=== PATIENT | female | born 1975 | race Caucasian/White ===

== ENCOUNTER 2022-05-15 09:03 | Outpatient (CLI) | payer OTHER, SELFPAY ==
--- NOTE | 2022-05-15 09:00 | ECG_ITS ---
Measurements Intervals [place] Rate: 68 P: 7 CT: 145 QRS: 38 QRSD: 92 T: 35 QT: 385 QTc: 411 Interpretive Statements SINUS RHYTHM BASELINE ARTIFACT- I, II, III, AVR, AVL, AVF, V1-V6 NORMAL ECG NO PREVIOUS ECG AVAILABLE FOR COMPARISON Electronically Signed On 05-15-2022 9:50:35 CDT by Kevan Bradley D.O.
[2022-05-15 09:51] LABS: Anion Gap 14 mmol/L (8-16); Blood Urea Nitrogen 11 mg/dL (7-17); Carbon Dioxide 23 mmol/L (22-30); Chloride 99 mmol/L (98-107); Estimated Glomerular Filt Rate > 60; Glucose 150 mg/dL (65-110); Potassium 4.2 mmol/L (3.4-5.0); Sodium 136 mmol/L (137-145)
== END 2022-05-15 09:04 | disposition home or self-care (01) ==
LOC: ANHSURGERY 09:12
PROVIDERS: Anesthesiology; PCP Nurse Practitioner Family; Visit Provider Orthopaedic Surgery
DX: E11.9 Type 2 diabetes mellitus without complications (principal); Z01.818 Encounter for other preprocedural examination
CPT/HCPCS: 36415; 80048; 93005

== ENCOUNTER 2022-05-20 00:47 | Day surgery (SDC) | payer OTHER, SELFPAY ==
[2022-05-14 10:39] VITALS: BMI 22.1
--- NOTE | 2022-05-14 10:57 | PC.NURSE ---
Report to the Outpatient Waiting Room, entrance under the green pavilion located off [facility], at time 11:30 on date 05/20/22. OR Time: 1:30. Time changes happen often and if your time is changed the preop area will call you the afternoon before. - You and your visitor will be asked to self-screen and do not enter if you have any COVID symptoms. - Only one visitor and NO children visitors are allowed at this time. - The patient visitor is requested to leave or wait in car when not with patient due to restrictions. - A mask is required within the hospital. Patients may have clear liquids (water, carbonated beverages, clear teas, apple juice) until 3 hours prior to surgery (10:30) with a maximum of 20 ounces. - No food from midnight until time of surgery Take the following medications with a SIP of water the morning of surgery: VALACYCLOVIR Medications to discontinue per physician: N/A Date to take last dose: N/A Please no make-up, nail v[place] citizen, hairspray, perfume, deodorant, or body powder the day of surgery. No jewelry (including any body piercings) or valuables the day of surgery, leave them at home. Please take a shower or bath the night before, or the morning of, surgery with an antibacterial soap. Wear comfortable, loose fitting clothing. - Jewelry must be removed prior to entering the operating room. Rings and piercings that are not removed may be cut off. - The hospital will not accept responsibility for valuables. - Please leave all valuables, including medications, at home the day of surgery. If you are going home after surgery, a licensed intermodal owner operator truck driver must drive you home. - NO public transportation without another adult. - We recommend that an adult stay with you for 24 hours following discharge. - We also recommend that you do not drive, make important decision, drink alcoholic beverages, or take any drugs that were not prescribed by your health care provider for at least 24 hours after your discharge time. Follow any additional instructions given to you from your surgeon. If you or anyone in your household have experienced Covid symptoms in the past week, please notify your surgeon or the nurse liaison at the phone number below for possible testing. Telephone instructions given to PT - NOÉ BLAND and asked if any additional questions and then verbalized understanding. Patient advised to call surgeon office or pre surgery nurse liaison [phone] if any additional questions.
--- NOTE | 2022-05-19 12:43 | P.PNAN_ITS ---
Anes - Initial Pre Proc Eval Procedure: Operation Date: 05/20/22 13:30 Proposed Procedures p Lateral Epicondyle Debridement Right Elbow - Warner Mcnair MD Date/Time: 05/19/22 12:43 Surgeon: Warner Mcnair MD Pre Op Diagnosis: right elbow lateral epicondylitis Patient Data Age: 46 Gender: F Height: 1.73 m Weight: 66.22 kg Allergies Allergy/AdvReac Type Severity Reaction Status Date / Time azithromycin Allergy Unknown Rash Verified 05/20/22 12:06 Penicillins Allergy Unknown Rash Verified 05/20/22 12:06 [facility]lutide [facility] AdvReac Severe Vomiting Verified 05/20/22 12:06 Mciulfj-BPD-UvA Reductase AdvReac Mild muscle Verified 05/20/22 12:06 Inhibitor cramps Home Medications Medication Instructions Recorded Confirmed Type lisinopril 10 mg tablet 10 mg PO DAILY 10/14/21 05/20/22 History metformin 500 mg tablet 500 mg PO DAILY 10/14/21 05/20/22 History valacyclovir 500 mg tablet 500 mg PO DAILY 10/14/21 05/20/22 History Patient hx anesthesia problems: none Family hx anesthesia problems: none Results Review: All pre-operative results and documents have been reviewed as part of the pre- operative evaluation. [facility] Past Medical History Medical History Amenorrhea Anemia Anxiety disorder Diabetes GERD with esophagitis Heart murmur Hypertension Low back pain Menorrhagia Surgical History Surgical History History of bladder surgery History of History of endometrial ablation History of knee surgery History of tubal ligation Hx of foot surgery Family History Family History Mother Diabetes mellitus Hypertension Social History Social History Smoking packs per day: 0.5 Smoking cigarettes per day: 10.0 Years smoked: 20 Smoking pack-years: 10.00 Smoking status: Current every day smoker Tobacco type: cigarettes Alcohol intake: never Drinks per week: 4 Substance use: current Substance use type: marijuana Living arrangements: with family Spiritual care concerns: No Anes - Eval Final PreProcedure Day of Procedure 05/19/22 12:43 Patient weight: normal Heart: regular rate and rhythm Lungs: clear to auscultation and normal air movement Airway: Mallampati scale class II Neurological: alert and oriented Last oral intake: >/= 8 hours ASA classification: III Emergent: no Anesthetic plan: proceed Anesthesia type and monitoring: general LMA Results Review: All pre-operative results and documents have been reviewed as part of the pre- operative evaluation. Informed Consent: The patient's anesthetic plan and its attendant risks and benefits were discussed with the patient/family/POA. Questions were solicited and answers provided to the satisfaction of the patient/family/POA.
[2022-05-20] VITALS (9 sets, daily range): BP systolic 142–166; BP diastolic 64–100; PULSE 60–85; RESP 12–20; TEMP 36.1; O2SAT 98–100
--- NOTE | 2022-05-20 10:09 | PM.HPGS ---
History of Present Illness History of Present Illness Consent: Risks, benefits, and alternatives have been discussed and questions answered. Patient agrees to proceed with procedure. Chief complaint: right elbow lateral epicondylitis Narrative: Emily Camacho is a 46 year old female with well-localized lateral elbow pain.? Limits her daily activities.? Aggravated particularly by picking things up and gripping.? She has had several injections and physical therapy. The last injection was not helpful.? Physical therapy did not provide relief. Examination? Normal elbow motion.? Well-localized tenderness at the lateral epicondyle on the right.? Pain with provocative resistance testing.? No skin rash or lesion.? Full range of motion without pain bilaterally.? No instability.? No effusion.? Shoulder exam benign bilaterally.? Good system safety engineer strength.? Light touch sensation intact. ? Negative Tinel's test at the elbow bilaterally. Diagnostics? Previous radiographs show no significant findings. MRI shows tendinosis of the common extensor tendon. Impression Lateral epicondylitis right elbow.?Confirmed by MRI. Persistent right lateral elbow pain despite several injections and physical therapy.? She had good relief from the very 1st injection only. She is right-handed and very frustrated.?? I recommend?lateral epicondylitis debridement.? Risks, benefits, and alternatives discussed.? Review of Systems Review of Systems: All systems reviewed & are unremarkable except as noted in HPI and below PMFSH Past Medical History Medical History Amenorrhea Anemia Anxiety disorder Diabetes GERD with esophagitis Heart murmur Hypertension Low back pain Menorrhagia Surgical History Surgical History History of bladder surgery History of History of endometrial ablation History of knee surgery History of tubal ligation Hx of foot surgery Family History Family History Mother Diabetes mellitus Hypertension Social History Social History Smoking packs per day: 0.5 Smoking cigarettes per day: 10.0 Years smoked: 20 Smoking pack-years: 10.00 Smoking status: Current every day smoker Tobacco type: cigarettes Alcohol intake: never Drinks per week: 4 Substance use: current Substance use type: marijuana Living arrangements: with family Spiritual care concerns: No Meds Home Medications and Allergies Home Medications Medication Instructions Recorded Confirmed Type lisinopril 10 mg tablet 10 mg PO DAILY 10/14/21 05/14/22 History metformin 500 mg tablet 500 mg PO DAILY 10/14/21 05/14/22 History valacyclovir 500 mg tablet 500 mg PO DAILY 10/14/21 05/14/22 History Allergies Allergy/AdvReac Type Severity Reaction Status Date / Time azithromycin Allergy Unknown Rash Verified 05/14/22 10:38 Penicillins Allergy Unknown Rash Verified 05/14/22 10:38 dulaglutide [[facility]] AdvReac Severe Vomiting Verified 05/14/22 10:38 [id number] Reductase AdvReac Mild muscle Verified 05/14/22 10:38 Inhibitor cramps Assessment and Plan Assessment and plan (1) Lateral epicondylitis of right elbow: Code(s): M77.11 - Lateral epicondylitis, right elbow Status: Acute
--- NOTE | 2022-05-20 10:15 | WPDHPUPDATE1 ---
History and Physical Update Update Date/Time: 05/20/22 10:15 History and Physical has been reviewed, including an updated exam of the patient. There are NO changes in the patient's condition. Risks, benefits, and alternatives have been discussed and questions answered. Patient agrees to proceed with procedure.
[2022-05-20] MEDS: LACTATED RINGERS 1,000 ML 30 ML IV CONT (11:50)
[2022-05-20] MEDS: ACETAMINOPHEN 500 MG TABLET 1000 MG PO (11:54)
[2022-05-20] MEDS: KETOROLAC 15 MG/ML VIAL (*BKC) IV PUSH ×2 (11:55→16:09)
[2022-05-20 12:03] LABS: Glucose Point of Care 146 mg/dl (65-105)
[2022-05-20] MEDS: ceFAZolin 2 GM/D5W 50 ML 2 GM/50 ML BAG IVPB (14:22)
[2022-05-20] MEDS: BUPIVACAINE HCL 0.5% PF 30 ML VIAL INFILTRATE (14:49)
[2022-05-20] MEDS: fentaNYL CITRATE INJ (*CRX) 100 MCG/2 ML VIAL 25 MCG IV PUSH ×4 (15:40→16:05)
[2022-05-20 15:44] LABS: Glucose Point of Care 119 mg/dl (65-105)
--- NOTE | 2022-05-20 16:00 | P.OP_ITS ---
Procedure Note - Detailed Date of Procedure 05/20/22 Pre-op Diagnosis right elbow lateral epicondylitis Post-op Diagnosis Same Procedure Performed Open lateral epicondylitis debridement, right elbow. Surgeon Warner Mcnair MD Warranty Administrator Laurie Wallace PA-C Anesthesia General Indications Extensive tendinosis of the common extensor tendon origin. 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 Description of Procedure The patient was brought to the operating room. Preoperative antibiotics were given. A general anesthetic was administered. The arm was prepped and draped in the usual sterile fashion with a well-padded tourniquet on the arm. The limb was exsanguinated and the tourniquet inflated to 250 mililiters of mercury. A longitudinal incision was created over the pathological site at the lateral epicondyle. Dissection was brought down to the interval between the common extensor tendons and the extensor carpi radialis longus. The muscle was elevated, exposing the extensor carpi radialis brevis. Degenerative pathologic tendon was identified and excised sharply. The lateral epicondyle was abraded with a rongeur. The scratch test was to confirm complete excision of pathologic tissue. The wound was carefully irrigated. The tourniquet was released. The extensor tendon origin was repaired with [id number] sutures #1 Vicryl . The skin was closed with interrupted 3-0 Monocryl suture followed by running 4-0 Monocryl suture and Steri-Strips. Sterile dressing was applied with the wrist splint. The patient was extubated and brought to the recovery room in stable condition. Physician mailroom assistant, Laurie Wallace PA-C, required for surgery; including patient positioning, draping, tissue retraction, wound closure, and dressing placement. Estimated Blood Loss 1 Pathology None sent Complications No immediate complications Condition Stable Disposition PACU [facility] Billing Surgery - Charge Forward: Surgery Billing
== END 2022-05-20 17:25 | disposition home or self-care (01) ==
PROVIDERS: PCP Nurse Practitioner Family; Visit Provider Orthopaedic Surgery
PROC: (CPT 24110; principal; 2022-05-20 13:30)
DX: M77.11 Lateral epicondylitis, right elbow (principal); I10 Essential (primary) hypertension; E11.9 Type 2 diabetes mellitus without complications; Z79.84 Long term (current) use of oral hypoglycemic drugs; F17.210 Nicotine dependence, cigarettes, uncomplicated
CPT/HCPCS: 24359; 36415; 80048; 82948; 93005; A4565; A9270; J0690; J1885; J2250; J2405; J2704; J3010; J7120

== ENCOUNTER 2024-10-12 12:39 | Outpatient (CLI) | payer BC, SELFPAY ==
--- NOTE | 2024-10-12 12:47 | ECG_ITS ---
Test Date: 2024-10-12 13:00:52 Measurements Intervals [place] Rate: 85 P: 48 OK: 164 QRS: 46 QRSD: 85 T: 32 QT: 344 QTc: 411 Interpretive Statements SINUS RHYTHM BASELINE ARTIFACT- I, II, III, AVR, AVL, AVF NORMAL ECG No previous ECG available for comparison Electronically Signed On 10-12-2024 13:50:55 TECHNICIAN SUPPORT ENGINEER by Kevan Bradley D.O.
--- OUTSIDE RECORDS SUMMARY | 2024-10-12 14:12 | XMS_ITS | Encounter Summary ---
Author Organization [facility] Address [address] [place] [address] Phone Care Team Providers Care Urban Gardening Specialist Name Role Phone Lakisha, Iva FUNK CNP Primary Care Provider [phone] Encounter Details Date Type Department Care Team (Late st Contact Info) Description 03/06/2020 Transcribe Orders [facility] Preop/Pacu II [address] [place] [id number] Warner Gibsno DPM [address] [place] [phone] Pre-op testing (Primary Dx) Social History Tobacco Use Types Packs/Day Years Used Date Smoking Tobacco: Every Day Cigarettes Smokeless Tobacco: Never Alcohol Use Standard Drinks/Week Comments Yes 1 (1 standard drink = 0.6 oz pur e alcohol) occassionally Comments No Sex and Gender Information Value Date Recorded Sex Assigned at Not on file Legal Sex Female 10:42 AM CDT Gender Identity Not on file Sexual Orientation Not on file COVID-19 Exposure Response Date Recorded In the last month, have you been in contact with someone who was confirmed or suspected to have Coronavirus / COVID-19? No / Unsure 03/06/2020 9:31 AM CDT documented as of this encounter Plan of Treatment Not on file documented as of this encounter Results * PRE PROCEDURE/SCREEN SARS-COV-2 PCR (03/11/2020 10:23 AM CDT) SARSCOV2 NOT DETECTED (Reference Range for this test is Not Detected) 03/12/2020 10:53 AM CDT [facility] Swab NASOPHARYNGEAL STRUCTURE / Unknown Non-Phlebotomy Collection / Unknown 03/11/2020 10:23 AM CDT 03/11/2020 10:23 AM CDT Narrative [facility] - 03/12/2020 10:53 AM CDT Authorized Fact Sheets about this test for providers and patients are available at: https://www.fda.gov/medical-devices/ntbovwjku-nmxkgrtqcu-xdjmkuo-devices/emergen -us e-authorizations us Warner COHENM MICROBIOLOGY - GENERAL ORDERABLE S Final Result [facility] [address] [place] [address], documented in this encounter Visit Diagnoses Diagnosis Pre-op testing- Primary Preoperative examination, unspecified documented in this encounter Additional Health Concerns Assessment Noted Time PHQ-9 Depression Total Score: 0 10/27/19 18 11:15 AM CDT documented as of this encounter Care Teams Urban Gardening Specialist Relationship Specialty Start Date End Date Iva Banuelos APRN, TANK CAR RECONDITIONER [address] [place] [address] PCP - General Family Medicine 08/26/17 documented as of this encounter
--- OUTSIDE RECORDS SUMMARY | 2024-10-12 14:12 | XMS_ITS | Encounter Summary ---
Author Organization [facility] Address [address] [place] [address] Phone Care Team Providers Care It Application Administrator Name Role Phone Lakisha, Iva FUNK CNP Primary Care Provider [phone] Reason for Visit * Reason Comments Medication Refill Encounter Details Date Type Department Care Team (Late st Contact Info) Description 01/17/2020 Refill [facility] - Podiatry - [place] [address] [place] [phone] Warner Gibson DPM [address] [place] [phone] Medication Refill Social History Tobacco Use Types Packs/Day Years [...] on file Sexual Orientation Not on file documented as of this encounter Plan of Treatment Not on file documented as of this encounter Visit Diagnoses Not on filedocumented in this encounter Additional Health Concerns Assessment Noted Time PHQ-9 Depression Total Score: 0 10/27/19 18 11:15 AM CDT documented as of this encounter Care Teams It Application Administrator Relationship Specialty Start Date End Date Lakisha, GOOD Enrique, DEMETRI [address] [place] [address] PCP - General Family Medicine 08/26/17 documented as of this encounter
--- OUTSIDE RECORDS SUMMARY | 2024-10-12 14:12 | XMS_ITS | Encounter Summary ---
Author Organization [facility] Address [address] [place] [address] Phone Care Team Providers Care Rn Coronary Care Unit Name Role Phone Lakisha, Iva FUNK CNP Primary Care Provider [phone] Reason for Visit * Reason Comments Medication Refill Encounter Details Date Type Department Care Team (Late st Contact Info) Description 12/14/2019 Refill [facility] - Podiatry - [place] [address] [place] [phone] Warner Gibson DPM [address] [place] [phone] Medication Refill Social History Tobacco Use Types [...] have Coronavirus / COVID-19? No / Unsure 12/15/2019 9:05 AM CDT documented as of this encounter Plan of Treatment Not on file documented as of this encounter Visit Diagnoses Not on filedocumented in this encounter Additional Health Concerns Assessment Noted Time PHQ-9 Depression Total Score: 0 10/27/19 18 11:15 AM CDT documented as of this encounter Care Teams Rn Coronary Care Unit Relationship Specialty Start Date End Date Iva Banuelos APRN, SORTING MACHINE OPERATOR [address] [place] [address] PCP - General Family Medicine 08/26/17 documented as of this encounter
--- OUTSIDE RECORDS SUMMARY | 2024-10-12 14:12 | XMS_ITS | Clinical Summary ---
Author Organization [facility] Address [address] [place] [address] Phone Care Team Providers Care Aluminum Boat Inspector Name Role Phone Lakisha, Iva FUNK CNP Primary Care Provider [phone] Allergies Active Allergy Reactions Criticality Noted Date Comments Penicillins Other (see Comments) 07/10/2017 welts Azithromycin Rash 07/10/2017 Medications lisinopril (PRINIVIL, ZESTRIL) 10 MG Tablet 05/13/20 17 Active metFORMIN (GLUCOPHAGE) 1000 MG Tablet 1,000 mg every morning. 06/17/20 17 Active hydrOXYzine (ATARAX) 50 MG Tablet Take 50 mg by mouth every 6 hours as needed for Itching. Active amitriptyline (ELAVIL) 10 MG TabletIndications: Nausea and vomiting, intractability of vomiting not specified, unspecified vomiting type Take 1 Tab by mouth nightly. 90 Tab 01/30/20 18 Active Additional Information Patient not taking.Reported on 07/12/2019 doxycycline hyclate (VIBRAMYCIN) 100 MG Capsule as needed. 07/11/20 19 Active valACYclovir (VALTREX) 500 MG Tablet TK 1 T PO QD 0 06/14/20 19 Active Aspirin 81 MG Tablet Take 1 Tab by mouth 2 times daily. 100 Tab 3 07/28/20 19 Active Additional Information Patient not taking.Reported on 08/19/2019 Melatonin 10 MG Tablet Take by mouth. Activ e gabapentin (NEURONTIN) 300 MG Capsule Take 1 Cap by mouth nightly. 90 Cap 2 01/25/20 Active Additional Information Patient not taking.Reported on 12/31/2020 diclofenac sodium (VOLTAREN) 1 % Gel Apply 2 g 4 times daily. Apply to right foot medial heel 4 times daily 1 Tube 2 02/28/20 Active Additional Information Patient not taking.Reported on 09/24/2020 metFORMIN (GLUCOPHAGE) 500 MG Tablet Take 500 mg by mouth every evening. Active ondansetron (ZOFRAN) 4 MG Tablet TK 2 TS PO BID PRN 03/01/20 Active gabapentin (NEURONTIN) 100 MG Capsule TAKE 1 CAPSULE BY MOUTH TWICE DAILY 08/08/20 20 Active omeprazole (PriLOSEC) 20 MG CAPSULE DELAYED RELEASE TK 1 C PO QD 06/12/20 20 Active traZODone (DESYREL) 100 MG Tablet Take 100 mg by mouth daily. 12/08/19 21 Active HYDROcodone-acetam inophen (NORCO) 5-325 MG TabletIndications: Left shoulder strain Take 1 Tablet by mouth every 8 hours as needed for Moderate or more severe pain. 12 Tablet 05/27/20 21 Active naproxen (NAPROSYN) 500 MG Tablet Take 1 Tablet by mouth 2 times daily as needed for Mild or more severe pain. 20 Tablet 02/02/20 24 Active Active Problems No known active problems Encounters Date Type Department Care Team Description 09/14/2024 Documentation Only [facility] [address] [place] [id number] Rochelle Garcia, OT Pain in joint of left elbow (Primary Dx) 09/14/2024 Telephone [facility] [address] [place] [phone] Embick, Rochelle, OT cancel and self discharge 09/07/2024 Telephone [facility] [address] [place] [address] Embick, Rochelle, OT cancel 08/31/2024 11:15 AM COMMERCIAL FISHER Occupational Therapy [facility] [address], [address] [address] Iva Banuelos APRN, RAW MILL OPERATOR Embick, Rochelle, OT Pain in joint of left elbow (Primary Dx) Discharge Disposition: Discharged to home or Selfcare 08/31/2024 Travel 08/25/2024 10:45 AM COMMERCIAL FISHER Occupational Therapy [facility] [address], [address] [address] Iva Banuelos APRN, RAW MILL OPERATOR Embick, Rochelle, OT Pain in joint of left elbow (Primary Dx) Discharge Disposition: Discharged to home or Selfcare 08/25/2024 Travel 08/16/2024 Plan of Care Documentation [facility] [address] [address] 08/15/2024 3:45 PM COMMERCIAL FISHER Occupational Therapy [facility] [address], [address] [address] Iva Banuelos APRN, RAW MILL OPERATOR Embick, Rochelle, OT Pain in joint of left elbow Discharge Disposition: Discharged to home or Selfcare 08/15/2024 Travel 07/25/2024 Transcribe Orders [facility] [address] [place] [address] Iva Banuelos APRN, DEMETRI Pain in joint of left elbow (Primary Dx) from Last 3 Months Immunizations Immunization Administration Dates Next Due Pneumococcal Vaccine Adult - 23 Valent 6,04/22/2012 TDAP Vaccine 11/03/2012 Family History Medical History Relation Name Comments Colon Polyps Father Other-comment Father hernias Colon Polyps Maternal Grandfather No Known Problems Mother Relation Name Status Comments Father Alive blood clots Maternal Grandfather Mother Alive Social History Tobacco Use Types Packs/Day Years Used Date Smoking Tobacco: Every Day Cigarettes Smokeless Tobacco: Never Tobacco Cessation:Ready to Q uit: No; Counseling Given: No Alcohol Use Standard Drinks/Week Comments Yes 1 (1 standard drink = 0.6 oz pur e alcohol) occassionally Comments No Sex and Gender Information Value Date Recorded Sex Assigned at Not on file Legal Sex Female 10:42 AM CDT Gender Identity Not on file Sexual Orientation Not on file Last Filed Vital Signs Vital Sign Reading Time Taken Comments Blood Pressure 122/89 02/27/2024 6:30 PM CDT Pulse 73 02/27/2024 6:30 PM CDT Temperature 36.6 C (97.9 F) 02/27/2024 3:47 PM CDT Respiratory Rate 14 02/27/2024 6:30 PM CDT Oxygen Saturation 100% 02/27/2024 6:30 PM CDT Inhaled Oxygen Concentration - - Weight 68 kg (150 lb) 02/27/2024 3:47 PM CDT Height 172.7 cm (5' 8 ) 02/27/2024 3:47 PM CDT Body Mass Index 22.81 02/27/2024 3:47 PM CDT Plan of Treatment Health Maintenance Due Date Last Done Comments Hepatitis C Virus (HCV) Screening 1975 Hepatitis B Immunization (1 of 3 - 19+ 3-dose series) 1994 Pap Smear 1996 Cervical Cancer Screening (CCS) 2005 HPV/Cotest 2005 Pneumococcal Immunization Combined (2 of 2 - PCV) 03/31/2017 03/31/2016, 04/22/2012 Influenza Immunization (#1) 2024 SARS-COV-2 Immunization ( - season) 2024 Mammogram 09/18/2024 09/18/2023, 02/21/2016 Colonoscopy 12/19/2032 12/19/2022 Colorectal Cancer Screening 12/19/2032 Td Immunization Every 10 Years (Adults With 1 Tdap) 05/26/2033 05/26/2023, 11/03/2012 Respiratory Syncytial Virus (RSV) Immunization (Adult) (1 - 1-dose 75+ series) 2050 12/19/2022 DTaP/Tdap/Td Immunization Discontinued 2022, 11/03/2012 Discussion re Starting/Frequency of Mammograms Completed 09/18/2023, 02/21/2016 Meningococcal Immunization (ACWY) Aged Out No longer eligible based on patient's age to complete this topic Rotavirus Immunization Aged Out No lo nger eligible based on patient's age to complete this topic Medical Devices Implanted Type Area Reservations Agent Device Identifier Shelf Expiration Date Model / Serial / Lot System Fix 19.1mm 4.75mm Speedbridge Swivelock Biocomposite Noah Preload Strl - [id number] Implanted:Qty: 1 on 07/27/2019 by Warner Gibson DPM at [facility] IMPLANT Right: Achilles Tendon [employer] 04/16/2021 [id number] S-4 / [id number] S-4 / [id number] Procedures Procedure Name Priority Date/Time Associated Diagnosis Comments [facility] SCREENING BILATERAL DIGITAL W CAD W DANILO Routine 09/18/2023 12:33 PM COMMERCIAL FISHER Encounter for screening mammogram for breast cancer from Last 3 Months or Most Recently Relevant to Health Maintenance Results * ANNE SCREENING BILATERAL DIGITAL W CAD W DANILO (09/18/2023 12:33 PM COMMERCIAL FISHER) Anatomical Region Laterality Modality breast Bilateral Mammography 09/18/2023 12:5 5 PM COMMERCIAL FISHER Narrative 09/21/2023 11:09 AM COMMERCIAL FISHER - [facility] SCREENING BILATERAL DIGITAL W CAD W DANILO BILATERAL DIGITAL SCREENING MAMMOGRAM 3D/2D WITH CAD WITH MEDIOLATERAL OBLIQUE CRANIOCAUDAL: 09/18/2023 The study was acquired using digital technology and interpreted from soft copy. Current study was also evaluated with ICAD version 7.2. 2D digital mammographic views, as well as 3D digital tomosynthesis were performed in the CC and MLO projections. CLINICAL: Routine screening. Patient has no complaints. Patient reports 25 pound weight loss since last mammogram. Patient has reduced range of motion. No personal history of cancer. Mother with postmenopausal breast cancer. COMPARISONS: Comparison is made to exam dated: 02/21/2016 [facility]. BREAST TISSUE:The tissue of both breasts is heterogeneously dense. This may lower the sensitivity of mammography. FINDINGS: Loss of interstital fat correlates with reported history of significant interval weight loss. No significant masses, calcifications, or other findings are seen in either breast. There has been no significant interval change. IMPRESSION: BI-RAD 2 BENIGN There is no mammographic evidence of malignancy. A 1 year screening mammogram is recommended. A letter will be sent to the patient with these results. The patient will be entered into a reminder system with a target due date of 1 year for her next screening exam. Electronically signed by: Rebecca brown/brando:09/18/2023 16:47:52 Automation Software Engineer(s): RT Avril(R)(M), [facility] letter sent: Normal Exam Reading location: [facility] BI-RADS: 2 Benign Procedure Note Rebecca Arce MD - 09/21/2023 - ANNE SCREENING BILATERAL DIGITAL W CAD W DANILO BILATERAL DIGITAL SCREENING MAMMOGRAM 3D/2D WITH CAD WITH MEDIOLATERAL OBLIQUE CRANIOCAUDAL: 09/18/2023 The study was acquired using digital technology and interpreted from soft copy. Current study was also evaluated with ICAD version 7.2. 2D digital mammographic views, as well as 3D digital tomosynthesis were performed in the CC and MLO projections. CLINICAL: Routine screening. Patient has no complaints. Patient reports 25 pound weight loss since last mammogram. Patient has reduced range of motion. No personal history of cancer. Mother with postmenopausal breast cancer. COMPARISONS: Comparison is made to exam dated: 02/21/2016 [facility]. BREAST TISSUE:The tissue of both breasts is heterogeneously dense. This may lower the sensitivity of mammography. FINDINGS: Loss of interstital fat correlates with reported history of significant interval weight loss. No significant masses, calcifications, or other findings are seen in either breast. There has been no significant interval change. IMPRESSION: BI-RAD 2 BENIGN There is no mammographic evidence of malignancy. A 1 year screening mammogram is recommended. A letter will be sent to the patient with these results. The patient will be entered into a reminder system with a target due date of 1 year for her next screening exam. Electronically signed by: Rebecca Arce M.D. ab/penrad:09/18/2023 16:47:52 Automation Software Engineer(s): RT Avril(R)(M), [facility] letter sent: Normal Exam Reading location: [facility] BI-RADS: 2 Benign DEMETRI Peterson APRN MAMMO ORDERABLES Kathy l Result from Last 3 Months or Most Recently Relevant to Health Maintenance Insurance Care Teams Aluminum Boat Inspector Relationship Specialty Start Date End Date Iva Banuelos APRN, CNP [address] [place] [address] PCP - General Family Medicine 08/26/17
--- OUTSIDE RECORDS SUMMARY | 2024-10-12 14:12 | XMS_ITS | CONTINUITY OF CARE DOCUMENT ---
Author Name hipolitosherri ap Address Unknown Organization [facility] Address [address] [place] [address] Phone [phone] Care Team Providers Care Project Management Director Name Role Phone Trent Michael MD Unavailable [phone] [employer] SAL[employer] FLOOR ASSOCIATEMeghannCJAREN Unavailable PROBLEMS Condition Status Date Provider Notes Palpitations active Trent Michael MD Palpitations active Trent Michael MD Smoking active Trent Michael MD Prediabetes active Trent Michael MD ENCOUNTERS Date Type Provider Location Encounter Diag nosis - In-person encounter Office Visit Trent Michael MD [facility] - In-person encounter Office Visit Trent Michael MD [facility] PalpitationsPalpitationsSmokingPrediabet es VITAL SIGNS Date Observation Value Provider Body Mass Index (Ratio) 22.50 kg/m2 Angel Michael MD blood pressure, cuff size regular Ke rrluis Patterson blood pressure, diastolic 80 mm[Hg] Ke rri Leonardo blood pressure, systolic 142 mm[Hg] Cady Patterson oxygen saturation, oximetry 98 % Trish Patterson respiratory rate E&M 14 /min Trish carlson pulse rate 76 /min Trish keith weight E&M 148 [lb_av] Trish Beckett lder height E&M 68 [in_i] Trish Beckett lder Body Mass Index (Ratio) 22.96 kg/m2 Angel Michael MD blood pressure, cuff size large Pa ris Danielson blood pressure, diastolic 69 mm[Hg] Pa ris Danielson blood pressure, systolic 101 mm[Hg] Par is Danielson oxygen saturation, oximetry 99 % [facility] E&M 19 /min [place] pulse rate 67 /min [place] weight E&M 151 [lb_av] Thao Danielson height E&M 68 [in_i] Thao Kori ALLERGIES Allergy Name Onset Date Reaction Criticality Status ZPACK High Criticality active PCN High Criticality active HISTORY OF MEDICATION USE Medication Status Instructions Dates Provider Indications Com ments lisinopril 10 mg tablet active TAKE 1 TABLET BY MOUTH EVERY DAY Trish Patterson valacyclovir 500 mg tablet active TAKE 1 TABLET BY MOUTH EVERY DAY Trish Patterson metformin 500 mg tablet active TAKE 2 TABLETS BY MOUTH EVERY MORNING AND 1 TABLET IN THE EVENING Trish Patterson trazodone 150 mg tablet active Take 1 tablet by mouth as directed Trish Patterson SOCIAL HISTORY Date Observation Value Provider social history reviewed E&M revi ewed - no changes required Trent Michael MD social history E&M No premature CAD in famliy. Smoking History: P atient currently smokes every day. Trent Michael MD number of years as a smoker 15 a Trish Patterson smoking history, tot al pack/day 1/2 Trish Patterson cigarette use yes Trish manuel smoking status Current every day smoker K ant Patterson social history E&M No premature CAD in [place]. Trent Michael MD number of years as a smoker 15 a Thao Kori smoking history, tot al pack/day 1/2 Thao Danielson cigarette use yes Thao Danielson smoking status Current every day smoker P ladarius Kori INSURANCE PROVIDERS Payer name Policy type / Coverage type Vladislav red democrat ID [employer] Other [employer] Other [id number] [facility] [id number] ADVANCE DIRECTIVES Name Date DISCUSSED - NO DECISION MADE TREATMENT PLAN Date Name Performer [id number],S, Trent quiroz MD [id number],S, Trent quiroz MD [id number],S,E cho 09/12/21 CONCLUSIONS: 1 . Normal left ventricular systolic function. Normal left ventricular size. Normal left ventricular wall thickness. Left ventricular e jection fraction is measured at 60 %. 2 . No significant valvular abnormalities. Holter conclusion N ormal Sinus Rhythm. Avg HR 96 (52-153 bmp) N o abnormalities. TSH is 1.32, normal thyroid function. Occasional sinus tachycardia but reassured the pt., No arrythmia has been found. Follow up on an as needed basis. Trent Michael MD [id number],C,A dvised her to quit smoking completely. 3 mins spent. Trent Michael MD [id number],S, Trent quiroz MD [id number],N, Trent quiroz MD Cardiology Trent Michael MD Cardiology Trent Michael MD Cardiology:Echo 09/12 CONCLUSIONS: 1 . Normal left ventricular systolic function. Normal left ventricular size. Normal left ventricular wall thickness. Left ventricular e jection fraction is measured at 60 %. 2 . No significant valvular abnormalities. Holter conclusion N ormal Sinus Rhythm. Avg HR 96 (52-153 bmp) N o abnormalities. TSH is 1.32, normal thyroid function. Occasional sinus tachycardia but reassured the pt., No arrythmia has been found. Follow up on an as needed basis. Trent Michael MD Cardiology:Advised h er to quit smoking completely. 3 mins spent. Trent Michael MD Cardiology Trent Michael MD Cardiology Trent Michael MD Date Name BASIC METABOLIC PANE L W/EGFR COMPREHENSIVE METABO LIC PANEL, W/EGFR TSH, free T4, total T3 LIPID PANEL CT, Coronary Calcium Score Holter Monitor 48 hr Complete Echo HISTORY OF PROCEDURES Procedure Date Procedure Name Provider Procedure Notes S tatus Holter, 24 or 48 Trent Michael MD co mpleted EKG Trent Michael MD complete d
--- OUTSIDE RECORDS SUMMARY | 2024-10-12 14:12 | XMS_ITS | Clinical Summary ---
Author Organization [facility] Physician Office Building [address] [place] [id number] Care Team Providers Care Content Writer Name Role Phone Banuelos, Iva Inman NP Primary Care Provider Allergies Active Allergy Reactions Criticality Noted Date Comments Alprazolam Rash Medium Azithromycin Rash Medium Penicillins Hives Medium Medications blood-glucose meter (ONETOUCH ULTRA2) kit use as directed 1 kit 0 6 Active Additional Information Patient not taking.Reported on 07/08/2024 blood glucose diagnostic (ONETOUCH ULTRA TEST) strip use to check glucose 3x daily 100 strip 6 6 Active Additional Information Patient not taking.Reported on 07/08/2024 lisinopril (PRINIVIL,ZESTRI L) 10 mg tablet TK 1 T PO QD 2 8 Active fluticasone propionate (FLONASE) 50 mcg/actuation nasal sprayIndications :Viral upper respiratory tract infection Administer 2 sprays into each nostril daily 16 g 9 Active melatonin 10 mg tablet Active Jardiance 10 mg tablet Take 1 tablet (10 mg total) by mouth daily 4 Active metFORMIN (GLUCOPHAGE) 500 mg tablet Take 2 tablets (1,000 mg total) by mouth 2 (two) times a day Active albuterol HFA (PROVENTIL HFA,VENTOLIN HFA,PROAIR HFA) 90 mcg/actuation inhalerIndicatio ns:Wheezing Inhale 2 puffs every 6 (six) hours as needed for wheezing for up to 7 days 1 each 4 Active benzonatate (TESSALON) 100 mg capsuleIndicatio ns:Cough Take 1 capsule (100 mg total) by mouth 3 (three) times a day as needed for cough 42 capsule 4 Active Additional Information Patient not taking.Reported on 07/08/2024 traZODone (DESYREL) 150 mg tablet Take 1 tablet (150 mg total) by mouth nightly 4 Active Hospital, Clinic, or Other Facility Administered Medication Ordered Dose Route Frequency Start Date End Date Status albuterol 2.5 mg /3 mL (0.083 %) nebulizer solution 2.5 mgIndications:Wheezin g 2.5 mg nebu 4 times daily (respiratory therapy director) 09/21/2023 Active Active Problems Problem Noted Date Diagnosed Date Family history of colon cancer 09/12/2022 Overview (09/12/2022): Added automatically from request for surgery [id number] Encounter for screening colonoscopy 09/12/2022 Overview (09/12/2022): Added automatically from request for surgery [id number] Hearing loss of right ear 09/14/2020 Assessment & Plan (09/14/2020 9:26 AM STRAW HAT PLUNGER OPERATOR): [facility] Avoid ear cleaning techniques Avoid water to ears Vinegar and alcohol drops discussed and Handout provided DDD (degenerative disc disea se), [id number] center disc bulge 06/30/2018 Low back pain radiating to left leg 02/25/2018 Immunizations Immunization Administration Dates Next Due Pneumococcal Polysaccharide PPV23 03/31/2016 Surgical History Surgery Date Site/Laterality Comments SECTION 1994 section ELBOW SURGERY 05/20/2022 Right cartilage surgery COLONOSCOPY 08/17/2002 - 08/16/2003 TUBAL LIGATION 08/17/2010 - 08/16/2011 Medical History Medical History Date Comments Diabetes mellitus (HCC) Diabetes Hx Other Medical Hx Other Medical Allergies Diabetes mellitus (HCC) Diabetes mellitus Hypertension Chronic diarrhea Type 2 diabetes mellitus (HCC) Family History Medical History Relation Name Comments Hypertension Father Hypertension; Esophageal cancer Maternal Grandfather Ca ncer, esophageal; Lung cancer Maternal Grandfather Cancer, lung; Relation Name Status Comments Father Maternal Grandfather Social History Tobacco Use Types Packs/Day Years Used Date Smoking Tobacco: Heavy Smoker Cigarettes 0.8 31.2 Started: 1993 Smokeless Tobacco: Never Tobacco Cessation:Ready to Q uit: Not Asked; Counseling Given: Not Answered Comments:Smoking History Packs/day: 0.5 Packs Alcohol Use Standard Drinks/Week Comments No 0 (1 standard drink = 0.6 oz pur e alcohol) AUDIT-C Answer Date Recorded Q1: How often do you have a drink containing alc ohol? 2-4 times a month 12/18/2022 Q2: How many drinks containi ng alcohol do you have on a typical day when you are drinking? 1 or 2 12/18/2022 Q3: How often do you have si x or more drinks on one occasion? Never 12/18/2022 Personal Safety Answer Date Recorded Have you ever been in or are you currently in a harmful physical or emotional relationship or is someone making you feel afraid or unsafe? Denies 12/19/2022 Comments No Sex and Gender Information Value Date Recorded Sex Assigned at Not on file Legal Sex Female 12:49 AM STRAW HAT PLUNGER OPERATOR Gender Identity Not on file Sexual Orientation Not on file Obstetrics History Last Filed Vital Signs Vital Sign Reading Time Taken Comments Blood Pressure 122/72 07/08/2024 2:02 PM STRAW HAT PLUNGER OPERATOR Pulse 95 07/08/2024 2:02 PM STRAW HAT PLUNGER OPERATOR Temperature 37.1 C (98.8 F) 07/08/2024 2:02 PM STRAW HAT PLUNGER OPERATOR Respiratory Rate 17 07/08/2024 2:02 PM STRAW HAT PLUNGER OPERATOR Oxygen Saturation 96% 07/08/2024 2:02 PM STRAW HAT PLUNGER OPERATOR Inhaled Oxygen Concentration - - Weight 66.5 kg (146 lb 9.6 oz) 07/08/2024 2:02 P M STRAW HAT PLUNGER OPERATOR Height 172.7 cm (5' 8 ) 07/08/2024 2:02 PM STRAW HAT PLUNGER OPERATOR Body Mass Index 22.29 07/08/2024 2:02 PM STRAW HAT PLUNGER OPERATOR Plan of Treatment Health Maintenance Due Date Last Done Comments Cervical Cancer Screening 1975 Hepatitis C Screening 1975 Hepatitis B Screening 1993 Regular Well Visit/Exam 18-64 1993 Pneumococcal vaccine <65 (2 of 2 - PCV) 03/31/2017 03/31/2016, 04/22/2012 Depression Screening 02/22/2019 02/22/2018, 02/23/20 DTaP/Tdap/Td Vaccine (2 - Td or Tdap) 11/03/2022 Influenza Vaccine (#1) 2024 Breast Cancer Screening-Mammogram 09/18/2024 09/18/2023, 09/18/2023, 02/21/2016 Colon Cancer Screening-Colonoscopy 12/19/20322022 Goals Goal Patient Goal Type Associated Problems Recent Progress Patient-Stated? Author [facility] On track( 018 2:02 PM CDT) Yan Bull, RN Note: Pt would like to walk/jog again with minimal pain. Procedures Procedure Name Priority Date/Time Associated Diagnosis Comments COLONOSCOPY 12/19/2022 7:41 AM CDT from Last 3 Months or Most Recently Relevant to Health Maintenance Results * COLONOSCOPY (12/19/2022 7:41 AM CDT) Anatomical Region Laterality Modality Other Narrative Procedure Note Garret Garza MD - 12/19/2022 7:41 AM CDT [facility] Patient Name: Noé Camacho Procedure Date: 12/19/2022 7:41 AM Date of : 1975 Admit Type: Outpatient Age: 47 Gender: Female Attending MD: Garret Garza M.D. Room: [facility] ENDOSCOPY ROOM 1 Note Status: Finalized Patient Profile: This is a 47 year old female. Grandparent had colon cancer. She often has diarrhea attributed to medfor metformin. Procedure: Colonoscopy Indications: Screening for colon cancer: Family history of colorectal cancer in distant relative(s), Last colonoscopy: 2002 Referring MD: Iva Banuelos NP Providers: Garret Garza M.D. Impression: - One 5 mm polyp in the cecum, removed with a jumbo cold forceps. Resected and retrieved. - Random colon biopsy performed. - One 3 mm polyp in the proximal descending colon, removed with a jumbo cold forceps. Resected and retrieved. - Diverticulosis in the sigmoid colon. - Internal hemorrhoids. Recommendation: - Await pathology results. - Repeat colonoscopy in 4 years for screeningpurposes. - Continue present medications. Medicines: Monitored Anesthesia Care Complications: No immediate complications. Estimated Blood Loss: Estimated blood loss: none. Procedure: Pre-Anesthesia Assessment: - Prior to the procedure, a History and Physicalwas performed, and patient medications and allergieswere reviewed. The patient's tolerance of previous anesthesia was also reviewed. The risks andbenefits of the procedure and the sedation options and risks were discussed with the patient. All questions were answered, and informed consent was obtained. Prior Anticoagulants: The patient has taken noanticoagulant or antiplatelet agents. ASA Grade Assessment: II -A patient with mild systemic disease. After reviewing the risks and benefits, the patient was deemed in satisfactory condition to undergo the procedure. The benefits, risks and alternatives of theprocedure and sedation were discussed and informed consentwas obtained. All questions were answered. Please referto the signed informed consent document in the medical record. The bowel preparation used was Miralax via split dose instruction. The bowel preparation usedwas bisacodyl tablets via split dose instruction. The scope was passed under direct vision. The Pediatric Colonoscope PCF-H190L [id number] was introducedthrough the anus and advanced to the the cecum, identifiedby appendiceal orifice and ileocecal valve. Thequality of the bowel preparation was good. Bowel prep was administered using a split dose. Findings: The perianal and digital rectal examinations were normal. The appendiceal orifice appeared normal. A 5 mm polyp was found in the cecum. The polyp was semi-sessile. The polyp was removed with a jumbo cold forceps. Resection and retrieval were complete. The transverse colon and ascending colon appeared normal. The colon otherwise normal with no inflammatory changes and random colon biopsy performed to rule out microscopic colitis. A 3 mm polyp was found in the proximal descending colon. The polypwas semi-sessile. The polyp was removed with a jumbo cold forceps.Resection and retrieval were complete. A few small-mouthed diverticula were found in the sigmoid colon. Internal hemorrhoids were found during retroflexion. The hemorrhoids were medium-sized. Electronically signed by Garret Garza M.D. Garret Garza M.D. 12/19/2022 9:02:05 AM Number of Addenda: 0 Note Initiated On: 12/19/2022 7:41 AM Procedure Code(s): --- Professional --- 87828, Colonoscopy, flexible; with biopsy, single or multiple Diagnosis Code(s): --- Professional --- Z12.11, Encounter for screening for malignant neoplasm of colon K64.8, Other hemorrhoids D12.0, Benign neoplasm of cecum D12.4, Benign neoplasm of descending colon K57.30, Diverticulosis of large intestine without perforation orabscess without bleeding CPT copyright 2020 [employer]. All rights reserved. The codes documented in this report are preliminary and upon biodiesel engineering manager reviewmay be revised to meet current compliance requirements. Recognized by the [employer] for promoting quality in endoscopy us Garret Garza MD ENDOSCOPY PROCEDURES Final Result from Last 3 Months or Most Recently Relevant to Health Maintenance Insurance [employer] C[employer] PPO CIGNA OPEN ACCESS BLUE ACCESS OOS ANTHEM ACCESS Advance Directives For more information, please contact: [phone] * Full Code (Latest Code Status on File) Date Activated Date Inactivated Comments 12/19/2022 7:31 AM 12/19/2022 2:15 PM * Full Code Date Activated Date Inactivated Comments 12/19/2022 7:31 AM 12/19/2022 7:31 AM Care Teams Content Writer Relationship Specialty Start Date End Date Iva Banuelos NP [address] [place] [id number] [facility] - General 02/22/18
--- OUTSIDE RECORDS SUMMARY | 2024-10-12 14:12 | XMS_ITS | Referral Summary ---
Author Organization [facility] Physician Office Building [address] [place] [id number] Care Team Providers Care Stock Grader Name Role Phone Banuelos, Iva Inman NP Primary Care Provider [phone] Allergies Active Allergy Reactions Criticality Noted Date [...] g 2.5 mg nebu 4 times daily (entertainment & media correspondent) 09/21/2023 Active Active Problems Problem Noted Date Diagnosed Date Family history of colon cancer 09/12/2022 Overview (09/12/2022): Added automatically from request for surgery [id number] Encounter for screening colonoscopy 09/12/2022 Overview (09/12/2022): Added automatically from request for surgery [id number] Hearing loss of right ear 09/14/2020 Assessment & Plan (09/14/2020 9:26 AM STAFF TRAINING AND DEVELOPMENT MANAGER): [facility] Avoid ear cleaning techniques Avoid water to ears Vinegar and alcohol drops discussed and Handout provided DDD (degenerative disc disea se), [id number] center disc bulge 06/30/2018 Low back pain radiating to left leg 02/25/2018 Immunizations Immunization Administration Dates Next Due Pneumococcal Polysaccharide PPV23 03/31/2016 Social History Tobacco Use Types Packs/Day Years [...] on file Legal Sex Female 12:49 AM STAFF TRAINING AND DEVELOPMENT MANAGER Gender Identity Not on file Sexual Orientation Not on file Last Filed Vital Signs Vital Sign Reading Time Taken Comments Blood Pressure 122/72 07/08/2024 2:02 PM STAFF TRAINING AND DEVELOPMENT MANAGER Pulse 95 07/08/2024 2:02 PM STAFF TRAINING AND DEVELOPMENT MANAGER Temperature 37.1 C (98.8 F) 07/08/2024 2:02 PM STAFF TRAINING AND DEVELOPMENT MANAGER Respiratory Rate 17 07/08/2024 2:02 PM STAFF TRAINING AND DEVELOPMENT MANAGER Oxygen Saturation 96% 07/08/2024 2:02 PM STAFF TRAINING AND DEVELOPMENT MANAGER Inhaled Oxygen Concentration - - Weight 66.5 kg (146 lb 9.6 oz) 07/08/2024 2:02 P M STAFF TRAINING AND DEVELOPMENT MANAGER Height 172.7 cm (5' 8 ) 07/08/2024 2:02 PM STAFF TRAINING AND DEVELOPMENT MANAGER Body Mass Index 22.29 07/08/2024 2:02 PM STAFF TRAINING AND DEVELOPMENT MANAGER Plan of Treatment Not on file Goals Goal Patient Goal Type Associated Problems Recent Progress Patient-Stated? Author [facility] On track( 018 2:02 PM CDT) No Yan Greenberg, RN Note: Pt would like to walk/jog again with minimal pain. Procedures Procedure Name Priority Date/Time Associated Diagnosis Comments COLONOSCOPY 12/19/2022 7:41 AM CDT from Last 3 Months or Most Recently Relevant to Health Maintenance Results * COLONOSCOPY (12/19/2022 7:41 AM CDT) Anatomical Region Laterality Modality Other Narrative Procedure Note Garret Garza MD - 12/19/2022 7:41 AM CDT [facility] Patient Name: Noé Camacho Procedure Date: 12/19/2022 7:41 AM Date of : 1975 Admit Type: Outpatient Age: 47 Gender: Female Attending MD: Garret Garza M.D. [facility] Note Status: Finalized [...] under direct vision. The Pediatric Colonoscope PCF-H190L [id number] was introducedthrough the anus and advanced to [...] 7:41 AM Procedure Code(s): --- Professional --- 34214, Colonoscopy, flexible; with biopsy, single or multiple Diagnosis Code(s): --- Professional --- Z12.11, Encounter for screening for malignant neoplasm of colon K64.8, Other hemorrhoids D12.0, Benign neoplasm of cecum D12.4, Benign neoplasm of descending colon K57.30, Diverticulosis of large intestine without perforation orabscess without bleeding CPT copyright 2020 [employer]. All rights reserved. The codes documented in this report are preliminary and upon enterprise project manager reviewmay be revised to meet current compliance requirements. Recognized by the [employer] for promoting quality in endoscopy Garret Garza MD ENDOSCOPY PROCEDURES Final Result from Last 3 Months or Most Recently Relevant to Health Maintenance Insurance [employer] PPO CIG OPEN ACCESS Scoreoid OOS ANTHEM ACCESS Advance Directives For more information, please contact: [phone] * Full Code (Latest Code Status on File) Date Activated Date Inactivated Comments 12/19/2022 7:31 AM 12/19/2022 2:15 PM * Full Code Date Activated Date Inactivated Comments 12/19/2022 7:31 AM 12/19/2022 7:31 AM Care Teams Stock Grader Relationship Specialty Start Date End Date Iva Banuelos NP [address] [place] [id number] PCP - General 02/22/18
--- OUTSIDE RECORDS SUMMARY | 2024-10-12 14:13 | XMS_ITS | Data Portability ---
Author Organization [facility] Address [address] [place] [address] Care Team Providers Care Mortgage Loan Specialist Name Role Phone IVA RODARTE Primary Care Provider [facility] Checker Product Design Assessment No assessment recorded. Plan of Treatment Reminders Order Date Submit Date Provider Last Modified By Organization Details Last Modified Time Details Appointments ANY 30 2024 08:00A Rome Rodarte, WHARF WORKER, DOOR BUILDER-C Not available Not available Not available Lab HbA1c (hemogl obin A1c), blood 2023 024 In-Office Order, Internal Use Only DO Not Attach Compendium DO Not Attach Compendium, Do Not Delete/merge, [id number] 06/30/2024 09:09:16 CMP, serum or plasma 2023 024 [facility], [address] [address], [place], [address], 03/22/2024 05:09:23 lipid panel, serum 2023 024 [facility], [address] [facility], [place], [address], 03/22/2024 05:09:22 TSH, ultra-s ensitiv e, serum 2023 024 [facility], [address] [place] [address] [place], [address], 03/22/2024 05:09:23 CBC 2023 024 [facility], [address] [place], [place] [address]ham, [facility], [place], [address], 03/22/2024 05:09:24 HbA1c (hemogl obin A1c), blood 2023 024 In-Office Order, Internal Use Only DO Not Attach Compendium DO Not Attach Compendium, Do Not Delete/merge, [id number] 03/21/2024 09:22:04 albumin /creati nine, mass ratio, urine 2023 024 [facility], [address] [facility], [facility], [place], [address], 03/22/2024 05:09:21 HbA1c (hemogl obin A1c), blood 2023 024 In-Office Order, Internal Use Only DO Not Attach Compendium DO Not Attach Compendium, Do Not Delete/merge, [id number] 09/15/2023 10:43:41 Referral orthope dic surgeon referra l 2023 024 Warner Mcnair MD, [address] [facility] [address], [place], [address], 07/24/2024 19:52:50 Procedures None recorde d. Surgeries None recorde d. Imaging XR, hip, unilate ral, 2 or 3 view 2023 024 [facility] (Radiology), [address] [place], [address], 04/06/2024 04:02:57 MAMMO, screeni ng, digital , bilater al 2023 024 [facility] (Radiology), [address] [place], [address], 09/21/2023 12:12:24 Medication Orders buspiro ne 5 mg tablet 2023 024 [facility], [address] [place] [address], [address], 07/18/2024 12:35:58 benzona rodríguez 200 mg capsule 2023 024 [facility], [address] [place] [address], [address], 07/18/2024 13:27:44 Medrol (Blue) 4 mg tablets in a dose pack 2023 024 [facility], [address] [place] [address], [address], 07/18/2024 12:36:18 scopola mine 1 mg over 3 days transde rmal patch 2023 024 [facility], [address] [place] [address], [address], 07/18/2024 12:33:53 Xanax 0.5 mg tablet 2023 024 [facility], [address] [place] [address], [address], 07/18/2024 13:24:29 ondanse tian 4 mg disinte grating tablet 2023 024 [facility], [address] [place] [address], [address], 06/30/2024 09:16:52 Jardian ce 10 mg tablet 2023 024 [facility], [address], [facility], [place], [address], 06/30/2024 09:15:35 scopola mine 1 mg over 3 days transde rmal patch 2023 024 [facility], [address] [place] [address], [address], 06/30/2024 09:34:18 lisinop ril 10 mg tablet 2023 024 [facility], [address] [place], [address], 03/21/2024 09:21:49 trazodo ne 150 mg tablet 2023 024 [facility], [address] [place], [address], 03/21/2024 09:21:47 metform in 500 mg tablet 2023 024 [facility], [address] [place], [address], 03/21/2024 09:21:49 Jardian ce 10 mg tablet 2023 024 [facility], [address] [place], [address], 06/15/2024 13:51:15 ondanse tian 4 mg disinte grating tablet 2023 024 [facility], [address] [place] [address], [address], 03/21/2024 09:21:48 Tessalo n Perles 100 mg capsule 2023 024 [facility], [address] [place], [address], 03/21/2024 09:36:11 doxycyc line hyclate 100 mg capsule 2023 024 [facility], [address] [place], [address], 03/21/2024 09:36:22 ondanse tian 4 mg disinte grating tablet [email or web address] [place] [address] Pharmacy 1071, [address] [place], [address], 09/15/2023 10:43:39 lisinop ril 10 mg tablet [address] [facility], [address] [place], [address], 09/15/2023 10:43:39 trazodo ne 150 mg tablet [address] [facility], [address] [place], [address], 09/15/2023 10:43:39 metform in 500 mg tablet [address] [facility], [address] [place], [address], 09/15/2023 10:43:39 Jardian ce 10 mg tablet [address] [facility], [address] [place], [address], 09/16/2023 00:10:03 Patient TargetsNo targets recorded. Patient Instructions Encounter Date Encounter Id Patient Instructions Last Modified By Organization Details Last Modified Time 09/15/2023 [id number] deciding about u sing medicines to quit smoking Not available 09/15/2023 10:43:38 Quitting Tobacco : Care Instructions Not available 09/15/2023 10:43:38 nausea and vomit ing: care instructions Not available 09/15/2023 10:43:39 high blood press ure: care instructions Not available 09/15/2023 10:43:39 gastroesophageal reflux disease (GERD): care instructions Not available 09/15/2023 10:43:38 Continue to work on diet and decrease A1C to < 7 with fasting glucose 100. Need to see eye drAndrea each year for dilated eye exam. Increase activity level to get exercise most days of the week. Work on eating more fresh fruit, veggies and lean protein and less packaged foods. Cut back on the fatty foods, add fish oil or omega three fatty acids; red yeast rice may also help. Drink more water! Low salt diet. Take all medications as prescribed. Keep appointments with PCP and all specialists. Not available 09/15/2023 10:23:15 f/u 6 months [facility] barriers to care: none Not available 09/15/2023 10:43:15 11/23/2023 [id number] cough: care instructions Not available 11/23/2023 12:00:30 Acute Sinusitis: Care Instructions Not available 11/23/2023 12:00:30 Take as prescrib ed with full glass of water, may take with food if stomach discomfort. Take full course of antibiotics. Call office if problem worsens or continues after antibiotics have been completed. Probiotics recommended once antibiotic treatment has ended. Mucinex and other OTC cold/cough remedies are fine to take, increase fluids and have good handwashing. Get plenty of rest. Not available 11/23/2023 11:58:05 follow up as needed Not availa ble 11/23/2023 12:00:42 03/21/2024 [id number] deciding about u sing medicines to quit smoking Not available 03/21/2024 09:21:41 Quitting Tobacco : Care Instructions Not available 03/21/2024 09:21:41 high blood press ure: care instructions Not available 03/21/2024 09:21:41 nausea and vomit ing: care instructions Not available 03/21/2024 09:21:41 gastroesophageal reflux disease (GERD): care instructions Not available 03/21/2024 09:21:41 Continue to work on diet and decrease A1C to < 7 with fasting glucose 100. Need to see eye drAndrea each year for dilated eye exam. Increase activity level to get exercise most days of the week. Work on eating more fresh fruit, veggies and lean protein and less packaged foods. Cut back on the fatty foods, add fish oil or omega three fatty acids; red yeast rice may also help. Drink more water! Low salt diet. Take all medications as prescribed. Keep appointments with PCP and all specialists. Not available 03/21/2024 09:31:42 f/u 3 months [facility]P barriers to care: none Not available 03/21/2024 09:26:51 06/30/2024 [id number] deciding about u sing medicines to quit smoking Not available 06/30/2024 09:09:16 Quitting Tobacco : Care Instructions Not available 06/30/2024 09:09:16 nausea and vomit ing: care instructions Not available 06/30/2024 09:09:16 high blood press ure: care instructions Not available 06/30/2024 09:09:16 gastroesophageal reflux disease (GERD): care instructions Not available 06/30/2024 09:09:16 motion sickness: care instructions Not available 06/30/2024 09:34:10 Continue to work on diet and decrease A1C to < 7 with fasting glucose 100. Need to see eye dr. each year for dilated eye exam. Increase activity level to get exercise most days of the week. Work on eating more fresh fruit, veggies and lean protein and less packaged foods. Cut back on the fatty foods, add fish oil or omega three fatty acids; red yeast rice may also help. Drink more water! Low salt diet. Take all medications as prescribed. Keep appointments with PCP and all specialists. Not available 06/30/2024 09:04:53 f/u 3 months [facility]P barriers to care: none Not available 06/30/2024 09:04:54 07/18/2024 [id number] Rest- Rest your injured body part. Ice Apply a cold gel pack, bag of ice, or bag of frozen vegetables every 1 to 2 hours, for 15 minutes each time. Put a thin towel between the ice (or other cold object) and your skin. Use the ice (or other cold object) for at least 6 hours after your injury. Some people find it helpful to ice longer, even up to 2 days after their injury. Compression Compression basically means pressure. You want to have slight pressure by having it wrapped in an elastic compression bandage. It's important that you do not use too much pressure and cut off the blood flow to body part. Elevation Elevation means you should keep your injury body part raised up above the level of your heart. Not available 07/18/2024 13:33:32 keep f/u as planned Not availa ble 07/18/2024 13:33:36 Reason for Referral Orthopedic Surgeon Referral for Pain of left elbow joint Referring Physician: Iva Rodarte, Family Medicine, Encounter Date: 07/18/2024 Results Created Date Observation Date Name Description Value Unit Range Abnormal Flag Note LastModifiedBy Organization Detail LastModifiedTime 09/15/19 24 09/15/2023 HbA1c (hemo globi n A1c), blood HbA1c 6.9 Not Available In-Office Order Internal Use Only DO Not Attach Compendium DO Not Attach Compendium, Do Not Delete/merge, [id number] 09/15/2023 10:23:12 03/21/20 24 03/22/2024 ALBUM IN/CR EATIN INE RATIO ,URIN E creatinine, urine 61.9 mg/dL notest ab. Not Available [facility] ([facility]) [address] [place], [address], 03/22/2024 05:09:21 03/21/20 24 03/22/2024 ALBUM IN/CR EATIN INE RATIO ,URIN E albumin, urine <3.0 ug/mL notest ab. Not Available [facility] ([facility]) [address] [place], [address], 03/22/2024 05:09:21 03/21/20 24 03/22/2024 ALBUM IN/CR EATIN INE RATIO ,URIN E alb/creat ratio <5 Lindsey l: 0 - 29 Moder ately incre ased: 30 - 300 Sever latisha incre ased: >300 Not Available [facility] ([facility]) [address] [place], [address], 03/22/2024 05:09:21 03/21/20 24 03/22/2024 LIPID PANEL cholesterol, total 203 mg/dL 100-19 9 above high normal Not Available [facility] ([facility]) [address] [place], [address], 03/22/2024 05:09:22 03/21/20 24 03/22/2024 LIPID PANEL triglyceride s 92 mg/dL 0-149 Not Available [facility] ([facility]) [address] [facility] [place], [address], 03/22/2024 05:09:22 03/21/20 24 03/22/2024 LIPID PANEL HDL cholesterol 70 mg/dL >39 Not Available [facility] ([facility]) [address] [place] [place], [address], 03/22/2024 05:09:22 03/21/20 24 03/22/2024 LIPID PANEL VLDL cholesterol arnold 16 mg/dL 5-40 Not Available [facility] ([facility]) [address] [facility] [place], [address], 03/22/2024 05:09:22 03/21/20 24 03/22/2024 LIPID PANEL LDL chol calc ([facility]) 117 mg/dL 0-99 above high normal Not Available [facility] ([facility]) [address] [place] [place], [address], 03/22/2024 05:09:22 03/21/20 24 03/22/2024 COMP. METAB OLIC PANEL (14) glucose 154 mg/dL 70-99 above high normal Not Available [facility] ([facility]) [address] [facility] [place], [address], 03/22/2024 05:09:23 03/21/20 24 03/22/2024 COMP. METAB OLIC PANEL (14) BUN 17 mg/dL 6-24 Not Available [facility] ([facility]) [address] [facility] [place], [address], 03/22/2024 05:09:23 03/21/20 24 03/22/2024 COMP. METAB OLIC PANEL (14) creatinine 0.71 mg/dL 0.57-1 .00 Not Available [facility] ([facility]) [address] [facility] [place], [address], 03/22/2024 05:09:23 03/21/20 24 03/22/2024 COMP. METAB OLIC PANEL (14) eGFR 105 mL/mi n/1.7 3 >59 Not Available [facility] ([facility]) [address] [facility], [place], [address], 03/22/2024 05:09:23 03/21/20 24 03/22/2024 COMP. METAB OLIC PANEL (14) BUN/creatini ne ratio 24 9-23 above high normal Not Available [facility] ([facility]) [address] [facility], [place], [address], 03/22/2024 05:09:23 03/21/20 24 03/22/2024 COMP. METAB OLIC PANEL (14) sodium 138 mmol/ L 134-14 4 Not Available [facility] ([facility]) [address] [facility], [place], [address], 03/22/2024 05:09:23 03/21/20 24 03/22/2024 COMP. METAB OLIC PANEL (14) potassium 4.7 mmol/ L 3.5-5. 2 Not Available [facility] ([facility]) [address] [facility], [place], [address], 03/22/2024 05:09:23 03/21/20 24 03/22/2024 COMP. METAB OLIC PANEL (14) chloride 102 mmol/ L 96-106 Not Available [facility] ([facility]) [address] [facility], [place], [address], 03/22/2024 05:09:23 03/21/20 24 03/22/2024 COMP. METAB OLIC PANEL (14) carbon dioxide, total 22 mmol/ L 20-29 Not Available [facility] ([facility]) [address] [facility], [place], [address], 03/22/2024 05:09:23 03/21/20 24 03/22/2024 COMP. METAB OLIC PANEL (14) calcium 9.9 mg/dL 8.7-10 .2 Not Available [facility] ([facility]) [address] [place], [address], 03/22/2024 05:09:23 03/21/20 24 03/22/2024 COMP. METAB OLIC PANEL (14) protein, total 7.0 g/dL 6.0-8. 5 Not Available [facility] ([facility]) [address] [place], [address], 03/22/2024 05:09:23 03/21/20 24 03/22/2024 COMP. METAB OLIC PANEL (14) albumin 4.6 g/dL 3.9-4. 9 Not Available [facility] ([facility]) [address] [place], [address], 03/22/2024 05:09:23 03/21/20 24 03/22/2024 COMP. METAB OLIC PANEL (14) globulin, total 2.4 g/dL 1.5-4. 5 Not Available [facility] ([facility]) [address] [place], [address], 03/22/2024 05:09:23 03/21/20 24 03/22/2024 COMP. METAB OLIC PANEL (14) bilirubin, total 0.3 mg/dL 0.0-1. 2 Not Available [facility] ([facility]) [address] [facility] [place], [address], 03/22/2024 05:09:23 03/21/20 24 03/22/2024 COMP. METAB OLIC PANEL (14) alkaline phosphatase 76 IU/L 44-121 Not Available [facility] ([facility]) [address] [place], [address], 03/22/2024 05:09:23 03/21/20 24 03/22/2024 COMP. METAB OLIC PANEL (14) AST (SGOT) 12 IU/L 0-40 Not Available [facility] ([facility]) [address] [facility], [place], [address], 03/22/2024 05:09:23 03/21/20 24 03/22/2024 COMP. METAB OLIC PANEL (14) ALT (SGPT) 7 IU/L 0-32 Not Available [facility] ([facility]) [address] [facility], [place], [address], 03/22/2024 05:09:23 03/21/20 24 03/22/2024 TSH RFX ON ABNOR MAL TO FREE T4 TSH 1.470 uIU/m L 0.450- 4.500 Not Available [facility] ([facility]) [address] [facility], [place], [address], 03/22/2024 05:09:23 03/21/20 24 03/21/2024 CBC, PLATE LET, NO DIFFE RENTI AL WBC 7.0 x10e3 /uL 3.4-10 .8 Not Available [facility] ([facility]) [address] [facility], [place], [address], 03/22/2024 05:09:24 03/21/20 24 03/21/2024 CBC, PLATE LET, NO DIFFE RENTI AL RBC 4.83 x10e6 /uL 3.77-5 .28 Not Available [facility] ([facility]) [address] [facility], [place], [address], 03/22/2024 05:09:24 03/21/20 24 03/21/2024 CBC, PLATE LET, NO DIFFE RENTI AL hemoglobin 15.4 g/dL 11.1-1 5.9 Not Available [facility] ([facility]) [address] [facility], [place], [address], 03/22/2024 05:09:24 03/21/20 24 03/21/2024 CBC, PLATE LET, NO DIFFE RENTI AL hematocrit 47.2 % 34.0-4 6.6 above high normal Not Available [facility] ([facility]) [address] [facility], [place], [address], 03/22/2024 05:09:24 03/21/2003/21/2024 CBC, PLATE LET, NO DIFFE RENTI AL MCV 98 fL 79-97 above high normal Not Available [facility] ([facility]) [address] [facility], [place], [address], 03/22/2024 05:09:24 03/21/2003/21/2024 CBC, PLATE LET, NO DIFFE RENTI AL MCH 31.9 pg 26.6-3 3.0 Not Available [facility] ([facility]) [address] [facility], [place], [address], 03/22/2024 05:09:24 03/21/2003/21/2024 CBC, PLATE LET, NO DIFFE RENTI AL MCHC 32.6 g/dL 31.5-3 5.7 Not Available [facility] ([facility]) [address] [facility], [place], [address], 03/22/2024 05:09:24 03/21/2003/21/2024 CBC, PLATE LET, NO DIFFE RENTI AL RDW 12.5 % 11.7-1 5.4 Not Available [facility] ([facility]) [address] [facility], [place], [address], 03/22/2024 05:09:24 03/21/2003/21/2024 CBC, PLATE LET, NO DIFFE RENTI AL platelets 157 x10e3 /uL 150-45 0 Not Available [facility] ([facility]) [address] [place], [address], 03/22/2024 05:09:24 03/21/2003/21/2024 HbA1c (hemo globi n A1c), blood HbA1c 7.0 Not Available In-Office Order Internal Use Only DO Not Attach Compendium DO Not Attach Compendium, Do Not Delete/merge, [id number] 03/21/2024 09:19:42 06/30/20 24 06/30/2024 HbA1c (hemo globi n A1c), blood HbA1c 6.6 Not Available In-Office Order Internal Use Only DO Not Attach Compendium DO Not Attach Compendium, Do Not Delete/merge, [id number] 06/30/2024 09:04:47 09/21/19 24 09/18/2023 MAMMO , scree elle, digit al, bilat eral No observ ation record ed. jschulterma [facility] [address] [place], [address], 09/22/2023 10:22:34 04/06/20 24 04/05/2024 XR, hip, unila teral , 2 or 3 view No observ ation record ed. [facility] (Radiology) [address] [place], [address], 04/06/2024 11:03:35 Result Notes None recorded. Problems Name Problem SNOMED Code Status Onset Date Resolution Date Notes Provider Name and Address Organization Details Recorded Time Overweig 667930961 Completed 201702/26/2021 Iva Rodarte APN, FNP-Bonita Attn: Anthony malagon,[address] [place], [address], [facility] - COUNTS INCLUDE 234 BEDS AT THE [facility] 1 10:12:01 Low back pain 632830532 Active 2017 Iva Rodarte APN, FNP-C Attn: Anthony malagon,[address] [place], [address], [facility] - [facility] 8 22:37:29 Chronic vulvitis 3324511 Active Iva Rodarte APN, FNP-C Attn: Anthony malagon,[address] [place], [address], [facility] - [facility] 9 09:59:27 Backache 385664797 Active 2018 Iva Rodarte APN, FNP-C Attn: Anthony malagon,[address], [place], [address], [place] [facility] 9 11:07:06 Pain in right heel 95642069735 [address]69 Active 2018 Iva Rodarte APN, FNP-C Attn: Krystinjennifer malagon,[address] [facility], [place], [address], [place] [facility] 9 00:38:39 Dysfunct ion of eustachi an tube 76380551 Active 2018 Iva Rodarte APN, FNP-C Attn: Anthony manas,[address] [facility], [place], [address], [place] [facility] 9 00:38:41 Gastroes ophageal reflux disease without esophagi tis 674395469 Active 2019 Iva Rodarte APN, FNP-C Attn: Anthony manas,[address] [facility], [place], [address], [place] [facility] 0 11:10:27 Primary insomnia 3234767 Active 2020 Iva Rodarte APN, FNP-C Attn: Anthony manas,[address] [facility], [place], [address], [place] [facility] 1 10:12:05 Intermit tent palpitat ions 137889406 Active 2020 vIa Rodarte APN, FNP-C Attn: Anthony manas,[address] [facility], [place], [address], [place] [facility] 1 14:59:19 Hot sweats 720533591 Active 2021 Iva Rodarte APN, FNP-C Attn: Krystinjennifer malagon,[address] [place], [address], [place] [facility] 2 12:27:28 Herpes zoster 7189813 Active 2022 TERRENCE MENDES MD Attn: Anthony malagon,[address] [place], [address], [facility] - [facility] 3 16:51:52 Diabetes mellitus 59240177 Active 0: cont 500 mg bid, changed to 2 in am and 1 in pm Iva Rodarte APN DOOR BUILDER-C Attn: Anthony g,[address] [facility], [place], [address], [facility] - [facility] 0 16:56:08 Acute bronchit is 36623669 Completed 04/16/2017 Iva Rodarte APN DOOR BUILDER-C Attn: Anthony g,[address] [facility], [place], [address], [facility] - [facility] 7 10:30:41 Amenorrh ea 14896942 Active Iva Rodarte APN DOOR BUILDER-C Attn: Anthony g,[address] [facility], [place], [address], [facility] - [facility] 9 09:59:27 Menorrha brionna 072970215 Active Iva Rodarte APN DOOR BUILDER-C Attn: Anthony g,[address] [facility], [place], [address], [facility] - [facility] 9 09:59:27 Anemia 415136192 Active Iva Rodarte APN DOOR BUILDER-C Attn: Anthony g,[address] [facility], [place], [address], [facility] 9 09:59:27 Malignan t neoplast ic disease 241247738 Active Iva Rodarte APN DOOR BUILDER-C Attn: Krystinin g,[address] [facility], [place], [address], [facility] - [facility] 9 09:59:27 Heart murmur 22564317 Active Iva Rodarte APN DOOR BUILDER-C Attn: Accountin g,[address] [facility], [place], [address], [facility] - [facility] 9 09:59:27 Hyperten sive disorder 04742803 Active Iva Rodarte APN DOOR BUILDER-C Attn: Anthony malagon,[address] [facility], [place], [address], [facility] 9 09:59:27 Anxiety disorder 653897500 Active 2016 Iva Rodarte APN, DOOR BUILDER-C Attn: Anthony malagon,[address] [facility], [place], [address], [facility] 9 09:59:27 Nausea 215356907 Active 2016 Iva Rodarte APN, DOOR BUILDER-C Attn: Anthony malagon,[address] [facility], [place], [address], [facility] 9 09:59:27 Tobacco dependen ce syndrome 42352924 Active 2016 Iva Rodarte APN DOOR BUILDER-C Attn: Anthony malagon,[address] [facility], [place], [address], [facility] 9 09:59:27 Problem Notes None recorded. Procedures Surgical History Date Name Laterality Status Provider Name and Address Organization Details Recorded Time 12/20/19 23 colonoscopy completed Tomeka Long MA [facility] 12/26/2022 16:04:08 12/22/19 21 Date of Last Pap Smear completed Tasneem Staples RN [facility] 12/26/2020 16:15:30 07/27/20 19 foot repair completed Ashley Simmons MA [facility] 11/08/2019 09:41:33 02/22/20 16 Most Recent Mammogram completed Rosibel Landis MA [facility] 09/06/2019 07:26:54 02/15/20 16 Endometrial Ablation completed Iva Rodarte APN DOOR BUILDER-C Attn: Accounting,[address] [place], [address], [facility] 10/26/2017 10:09:35 08/17/19 13 Knee Surgery completed Luann Crabtree [facility] 7 10:06:19 03/10/20 11 Tubal Ligation completed Renetta Reid [facility] 09/06/2014 10:05:07 Caesarean Section completed Renetta Reid [place] - [facility] 09/06/2014 10:05:07 Imaging Results Imaging Date Name Status LastModified by Organiz ation Details LastModified Time 09/18/2023 MAMMO, screening, digital, bilateral completed jschulterma [facility] [address] [place], [address], 09/22/2023 10:22:34 04/05/2024 XR, hip, unilateral, 2 or 3 view completed [facility] (Radiology) [address] [place], [address], 04/06/2024 11:03:35 Procedure Notes None recorded. Medical Equipment None Reported. Allergies Allergen ID Allergen Name Allergen Category Reaction Reaction Severity Criticality Documentation Date Start Date Code Code System Note Provider Name and Address Organization Details Recorded Time [id number] Trulicity medicatio n vomiting severe Not available 10/26/2017 [id number] RxNorm Not Available Not Available Not Available [id number] Product containin g 3-hydroxy -3-methyl glutaryl- coenzyme A reductase inhibitor (product) medicatio n myalgias (muscle pain) Not available Not available 08/08/2020 01454 009 SNOMED leg cramp ing Not Available Not Available Not Available 4567 Product containin g penicilli n (product) medicatio n rash moderate Not available 07/18/2014 22502 8001 SNOMED Not Available Not Available Not Available 4568 azithromy lynn medicatio n rash severe Not available 07/18/2014 78117 RxNorm Not Available Not Available Not Available Medications Name Sig Start Date Stop Date Status Note LastModified by Organization Details LastModified Time cyclobenz aprine 10 mg tablet TAKE 1 TABLET BY MOUTH 3 TIMES DAILY NEEDED FOR MUSCLE SPASMS FOR UP TO 14 DAYS. 03/21 completed Not Available Not Available Not Available medroxypr ogesteron e 10 mg tablet 03/16 completed Not Available Not Available Not Available fluconazo le 100 mg tablet TAKE 1 TABLET BY MOUTH EVERY 72 HOURS FOR 4 DOSES 09/15 completed Not Available Not Available Not Available buspirone 5 mg tablet Take 1 tablet twice a day by oral route. 2023 active Not Available Not Available Not Avai lable metformin 500 mg tablet TAKE 2 TABLETS BY MOUTH TWICE DAILY active Not Available Not Available No t Available hydrocodo ne 7.5 mg-ibupro fen 200 mg tablet 12/01 completed Not Available Not Available Not Available prednison e 10 mg tablet PLEASE SEE ATTACHED FOR DETAILED DIRECTIO NS 02/16 completed Not Available Not Available Not Available doxycycli ne hyclate 100 mg capsule TAKE 1 CAPSULE BY MOUTH TWICE DAILY FOR 7 DAYS 03/21 completed Not Available Not Available Not Available clindamyc in HCl 300 mg capsule Take 1 capsule 3 times a day by oral route for 7 days. 12/23 completed Not Available Not Available Not Available trazodone 50 mg tablet TAKE 1 TABLET BY MOUTH EVERY DAY 12/07 completed increase d to 100mg per pt case Not Available Not Available Not Available ibuprofen 800 mg tablet 03/16 completed Not Available Not Available Not Available Lidocaine Viscous 2 % mucosal solution 12/23 completed Not Available Not Available Not Available fluconazo le 150 mg tablet Take 1 tablet every 72 hours by oral route for 1 day. 09/15 completed Not Available Not Available Not Available benzonata te 200 mg capsule TAKE 1 CAPSULE BY MOUTH THREE TIMES DAILY NEEDED 2023 active Not Available Not Available Not Avai lable valacyclo vir 1 gram tablet TAKE 1 TABLET BY MOUTH THREE TIMES DAILY FOR 7 DAYS 12/26 completed Not Available Not Available Not Available hydrocodo ne 5 mg-acetam inophen 325 mg tablet TAKE 1 TO 2 TABLETS BY MOUTH EVERY 4 HOURS NEEDED FOR PAIN . DO NOT EXCEED 6 PER 24 HOURS 07/28 completed Not Available Not Available Not Available meloxicam 15 mg tablet 15 mg by oral route. 01/27 completed Not Available Not Available Not Available ondansetr on HCl 4 mg tablet TAKE 2 TABLETS BY MOUTH TWICE DAILY NEEDED active Not Available Not Available No t Available Medrol (Blue) 4 mg tablets in a dose pack Take 1 dose pk by oral route as directed . 2023 active Not Available Not Available Not Avai lable prednison e 20 mg tablet PLEASE SEE ATTACHED FOR DETAILED DIRECTIO NS 02/16 completed Not Available Not Available Not Available prednison e 5 mg tablet 11/07 completed Not Available Not Available Not Available glipizide ER 5 mg tablet, extended release 24 hr 07/17 completed Not Available Not Available Not Available clindamyc in HCl 150 mg capsule 05/05 completed Not Available Not Available Not Available hydroxyzi ne pamoate 50 mg capsule TAKE 1 CAPSULE BY MOUTH FOUR TIMES DAILY NEEDED 09/07 completed Not Available Not Available Not Available metronida zole 500 mg tablet Take 1 tablet twice a day by oral route after meals for 7 days. 04/16 completed Not Available Not Available Not Available acetamino phen 300 mg-codein e 30 mg tablet 03/16 completed Not Available Not Available Not Available ciproflox acin 250 mg tablet Take 1 tablet every 12 hours by oral route for 3 days. 12/01 completed Not Available Not Available Not Available acyclovir 400 mg tablet 03/16 completed Not Available Not Available Not Available valacyclo vir 500 mg tablet TAKE 1 TABLET BY MOUTH ONCE A DAY 03/21 completed Not Available Not Available Not Available sulfameth oxazole 800 mg-trimet hoprim 160 mg tablet Take 1 tablet every 12 hours by oral route for 10 days. 11/12 completed Not Available Not Available Not Available hydrocodo ne 10 mg-acetam inophen 325 mg tablet 11/07 completed Not Available Not Available Not Available aspirin 81 mg tablet,de layed release 11/07 completed Not Available Not Available Not Available tramadol 50 mg tablet Take 1 tablet every 8 hours by oral route as directed . 01/24 completed Not Available Not Available Not Available dexmethyl phenidate 10 mg tablet 03/16 completed Not Available Not Available Not Available terconazo le 80 mg vaginal supposito ry 07/17 completed Not Available Not Available Not Available meloxicam 7.5 mg tablet 07/20 completed Not Available Not Available Not Available oxycodone -acetamin ophen 5 mg-325 mg tablet 11/07 completed Not Available Not Available Not Available alprazola m 0.5 mg tablet TAKE 1 TABLET BY MOUTH ONCE 30 MINUTES PRIOR TO FLIGHT, MAY TAKE AN ADDITION AL TABLET MID FLIGHT IF NEEDED. 07/18 completed Not Available Not Available Not Available oxycodone -acetamin ophen 10 mg-325 mg tablet 11/07 completed Not Available Not Available Not Available trazodone 100 mg tablet TAKE 1 TABLET BY MOUTH EVERY DAY 05/23 completed increase d to 150mg Not Available Not Available Not Available OneTouch Ultra Test strips USE DIRECTED TO TEST BLOOD SUGAR ONCE DAILY active Not Available Not Available No t Available amitripty line 10 mg tablet 05/05 completed pt d/c Not Available Not Available Not Available baclofen 10 mg tablet Take 1 tablet 4 times a day by oral route as needed. 12/23 completed prn Not Available Not Available Not Available benzonata te 100 mg capsule TAKE 1 CAPSULE BY MOUTH THREE TIMES DAILY NEEDED 03/21 completed Not Available Not Available Not Available simvastat in 5 mg tablet Take 1 tablet every day by oral route. 07/23 completed Not Available Not Available Not Available doxycycli ne monohydra te 100 mg capsule TAKE 1 CAPSULE BY MOUTH TWICE DAILY FOR 10 DAYS 12/26 completed Not Available Not Available Not Available Bleph-10 10 % eye drops 07/17 completed Not Available Not Available Not Available trazodone 150 mg tablet TAKE 1 TABLET BY MOUTH ONCE DAILY NEEDED 2024 active Not Available Not Available Not Avai lable ferrous sulfate 325 mg (65 mg iron) tablet Take 1 tablet twice a day by oral route for 30 days. 03/16 completed Not Available Not Available Not Available metformin 1,000 mg tablet TAKE 1 TABLET BY MOUTH TWICE DAILY 12/22 completed Not Available Not Available Not Available ranitidin e 150 mg tablet Take 1 tablet twice a day by oral route for 30 days. 03/16 completed Not Available Not Available Not Available dexametha sone 4 mg tablet TAKE 1 TABLET BY MOUTH EVERY DAY FOR 5 DAYS 03/21 completed Not Available Not Available Not Available buspirone 10 mg tablet 03/16 completed Not Available Not Available Not Available lisinopri l 10 mg tablet Take 1 tablet by mouth once daily active Not Available Not Available No t Available prednison e 50 mg tablet TAKE 1 TABLET BY MOUTH ONCE DAILY FOR 5 DAYS 03/21 completed Not Available Not Available Not Available lidocaine 5 % topical patch APPLY 1 PATCH BY TOPICAL ROUTE ONCE DAILY (MAY WEAR UP TO 12HOURS. ) 05/26 completed not using Not Available Not Available Not Available promethaz ine 25 mg tablet 03/16 completed Not Available Not Available Not Available gabapenti n 300 mg capsule Take 1 capsule every day by oral route at bedtime. 02/26 completed Not Available Not Available Not Available omeprazol e 20 mg capsule,d elayed release TAKE 1 CAPSULE BY MOUTH EVERY DAY 05/23 completed Not Available Not Available Not Available diclofena c sodium 75 mg tablet,de layed release 11/07 completed Not Available Not Available Not Available mupirocin 2 % topical ointment APPLY OINTMENT TOPICALL Y THREE TIMES DAILY 09/15 completed Not Available Not Available Not Available diclofena c sodium 50 mg tablet,de layed release Take 1 tablet twice a day by oral route as needed. 01/27 completed Not Available Not Available Not Available gabapenti n 100 mg capsule TAKE 1 CAPSULE BY MOUTH TWICE DAILY 02/26 completed Not Available Not Available Not Available ergocalci ferol (vitamin D2) 1,250 mcg (50,000 unit) capsule TAKE 1 CAPSULE BY MOUTH ONCE A WEEK 03/21 completed Not Available Not Available Not Available levofloxa lynn 500 mg tablet Take 1 tablet every 24 hours by oral route. 03/16 completed Not Available Not Available Not Available levofloxa lynn 750 mg tablet 11/07 completed Not Available Not Available Not Available scopolami ne 1 mg over 3 days transderm al patch Apply 1 patch every 72 hours by transder mal route. 2023 active Not Available Not Available Not Avai lable albuterol sulfate HFA 90 mcg/actua tion aerosol inhaler INHALE 2 PUFFS EVERY 6 HOURS NEEDED FOR WHEEZING FOR UP TO 7 DAYS active Not Available Not Available No t Available ondansetr on 4 mg disintegr ating tablet DISSOLVE 2 TABLETS IN MOUTH EVERY 12 HOURS NEEDED FOR NAUSEA active Not Available Not Available No t Available cefdinir 300 mg capsule TK 1 C PO Q 12 H FOR 7 DAYS 08/08 completed Not Available Not Available Not Available Lipitor 10 mg tablet Take 10 mg by oral route. 09/07 completed Not Available Not Available Not Available fluticaso ne propionat e 50 mcg/actua tion nasal spray,joel pension SHAKE LIQUID AND USE 1 SPRAY IN EACH NOSTRIL TWICE DAILY NEEDED active prn Not Available Not Available No t Available lisinopri l 2.5 mg tablet Take 2.5 mg by oral route. 09/07 completed Not Available Not Available Not Available doxycycli ne hyclate 100 mg tablet Take 1 tablet twice a day by oral route for 5 days. 01/24 completed Not Available Not Available Not Available dicyclomi ne 10 mg capsule 12/23 completed Not Available Not Available Not Available naproxen 500 mg tablet TAKE 1 TABLET BY MOUTH TWICE A DAY NEEDED FOR MILD OR MORE SEVERE PAIN 03/21 completed Not Available Not Available Not Available buspirone 15 mg tablet 03/16 completed Not Available Not Available Not Available tobramyci n 0.3 %-dexamet hasone 0.1 % eye drops,joel pension 07/17 completed Not Available Not Available Not Available escitalop shannan 10 mg tablet 03/16 completed Not Available Not Available Not Available cyclobenz aprine 5 mg tablet Take 5 mg by oral route. 09/07 completed Not Available Not Available Not Available ciproflox acin 0.3 %-dexamet hasone 0.1 % ear drops,joel pension INSTILL 4 DROPS IN AFFECTED EAR(S) TWICE DAILY FOR 7 DAYS 11/23 completed Not Available Not Available Not Available bupropion HCl XL 150 mg 24 hr tablet, extended release Take 1 tablet every day by oral route. 02/26 completed 11/24/19 21-pt states she uses prn Not Available Not Available Not Available metformin ER 1,000 mg tablet,ex tended release 24hr (osmotic) 07/17 completed Not Available Not Available Not Available nitrofura ntoin monohydra te/macroc rystals 100 mg capsule Take 1 capsule every day by oral route at bedtime. 07/28 completed Not Available Not Available Not Available chlorhexi dine gluconate 0.12 % mouthwash 12/23 completed Not Available Not Available Not Available hydrocodo ne 5 mg-acetam inophen 300 mg tablet 10/26 completed Not Available Not Available Not Available MedPlexusTouch Ultra2 Meter kit 12/26 completed Not Available Not Available Not Available Januvia 100 mg tablet 100 mg by oral route. 03/16 completed Not Available Not Available Not Available oxycodone 10 mg tablet 11/07 completed Not Available Not Available Not Available diclofena c 1 % topical gel 05/15 completed Not Available Not Available Not Available OneTouch Sedrick Iniguez 33 gauge active Not Available Not Available Not Available Silenor 6 mg tablet 03/16 completed Not Available Not Available Not Available Horizant ER 600 mg tablet,ex tended release 03/16 completed Not Available Not Available Not Available Chantix Starting Month Box 0.5 mg (11)-1 mg (42) tablets in dose pack Take 1 startr pk by oral route. 05/23 completed 11/24/19 21-she hasn't tried it is sitting on her dresser Not Available Not Available Not Available Jardiance 10 mg tablet TAKE 1 TABLET BY MOUTH ONCE DAILY IN THE MORNING active Not Available Not Available No t Available Trulicity 1.5 mg/0.5 mL subcutane ous pen injector 10/26 completed Not Available Not Available Not Available OneTouch Ultra2 Meter USE DIRECTED active Not Available Not Available No t Available BinaxNOW COVID-19 Ag Self Test kit Use as Directed on the Package 07/28 completed Not Available Not Available Not Available Vitals Date Recorded Body height Body mass index (BMI) Body weight Oxygen saturation Oxygen saturation in Arterial blood by Pulse oximetry Heart rate Respiratory rate Body temperature Systolic blood pressure Diastolic blood pressure Provider Name and Address Organization Details Last Updated DateTime 4 172.72 cm 23 kg/m2 20482.4 5 g 96 % 96 % 96 /min 16 /min 97.5 [degF] 154 mm[Hg] 100 mm[Hg] RAFAELA Russo [place] - [facility] 4 10:07:31 Date Recorded Systolic blood pressure Diastolic blood pressure Provider Name and Address Organization Details Last Updated DateTime 09/15/2023 138 mm[Hg] 78 mm[Hg] Iva Rodarte APN, YAMELC Attn: Accounting,[address] [facility], [place], [address], [place] - [place] 09/15/2023 10:30:14 Date Recorded Body height Body mass index (BMI) Body weight Oxygen saturation Oxygen saturation in Arterial blood by Pulse oximetry Heart rate Body temperature Systolic blood pressure Diastolic blood pressure Provider Name and Address Organization Details Last Updated DateTime 4 172.72 cm 21.5 kg/m2 80324.2 2 g 97 % 97 % 109 /min 97.5 [degF] 129 mm[Hg] 89 mm[Hg] Tomeka Long MA [facility] 4 11:43:41 Date Recorded Body height Body mass index (BMI) Body weight Oxygen saturation Oxygen saturation in Arterial blood by Pulse oximetry Respiratory rate Body temperature Heart rate Systolic blood pressure Diastolic blood pressure Provider Name and Address Organization Details Last Updated DateTime 4 172.72 cm 21.6 kg/m2 42634.1 2 g 99 % 99 % 16 /min 97.5 [degF] 72 /min 130 mm[Hg] 88 mm[Hg] RAFAELA Russo [facility] 4 09:06:58 Date Recorded Body height Body mass index (BMI) Body weight Oxygen saturation Oxygen saturation in Arterial blood by Pulse oximetry Respiratory rate Body temperature Heart rate Systolic blood pressure Diastolic blood pressure Provider Name and Address Organization Details Last Updated DateTime 4 172.72 cm 22.2 kg/m2 86800.4 9 g 97 % 97 % 16 /min 97.5 [degF] 82 /min 138 mm[Hg] 86 mm[Hg] RAFAELA Russo [facility] 4 09:00:54 Date Recorded Body height Body mass index (BMI) Body weight Oxygen saturation Oxygen saturation in Arterial blood by Pulse oximetry Respiratory rate Body temperature Heart rate Systolic blood pressure Diastolic blood pressure Provider Name and Address Organization Details Last Updated DateTime 4 172.72 cm 23 kg/m2 64343.4 5 g 97 % 97 % 16 /min 98 [degF] 92 /min 152 mm[Hg] 100 mm[Hg] RAFAELA Russo [facility] 4 12:08:29 Social History Question Answer Notes LastModified by Organizat ion Details LastModified Time Tobacco Smoking Status Current Every Day Smoker [place] - [place] 07/18/2014 14:43:29 Do You Have An Advance Directive? No Information not available 09/07/2018 What Is Your Level Of Alcohol Consumption? Occasional Information not available 05/23/2021 Are You Blind Or Do You Have Difficulty Seeing? No Reading Glases [email or web address] Information not available 02/16/2023 What Is Your Level Of Caffeine Consumption? Heavy Tea [email or web address] Information not available 05/26/2023 How Much Tobacco Do You Chew? None Information not available 04/16/2017 In The 14 Days Before Symptom Onset, Have You Had Close Contact With A Laboratory-confi rmed COVID-19 While That Case Was Ill? No Information not available 07/18/2024 In The 14 Days Before Symptom Onset, Have You Had Close Contact With A Person Who Is Under Investigation For COVID-19 While That Person Was Ill? No Information not available 07/18/2024 Have You Been To An Area Known To Be High Risk For COVID-19? No Information not available 05/23/2021 Are You Currently Employed? No Information not available 11/23/2020 Are You Deaf Or Do You Have Serious Difficulty Hearing? No Information not available 11/23/2020 What Type Of Diet Are You Following? REGULAR Does Not Eat Much Information not available 03/21/2024 Which Illicit Or Recreational Drugs Have You Used? None Information not available 04/16/2017 Do You Or Have You Ever Used E-cigarettes Or Vape? Former User Of Electronic Cigarettes Information not available 03/23/2019 Education 12 Information not available 09/07/2018 What Is Your Occupation? [employer] [email or web address] Information not available 07/28/2022 Are There Any Guns Present In Your Home? No Information not available 09/07/2018 Hard Of Hearing Or Deaf In One Or Both Ears? No Information not available 09/06/2014 Legally Blind In One Or Both Eyes? No Information not available 09/06/2014 Marital Status Informatio n not available 09/07/2018 What Was The Date Of Your Most Recent Tobacco Screening? 07/18/2024 Information not available 07/18/2024 How Many Children Do You Have? 4 Information not available 09/06/2014 What Is Your Current Pack Years? 10-19packyear s [email or web address] Information not available 12/21/2020 Do You Use Protection During Sex? No Information not available 01/24/2022 What Is Your Relationship Status? Information not available 11/23/2020 Do You Use Your Seat Belt Or Car Seat Routinely? Yes Information not available 11/23/2020 Seat Belts Used Routinely Yes Information not available 09/07/2018 Are You Sexually Active? Yes Information not available 01/24/2022 Smoke Alarm In Home Yes Information not available 09/07/2018 Do You Have Smoke And Carbon Monoxide Detectors In Your Home? Yes Information not available 11/23/2020 At What Age Did You Start Smoking Tobacco? 26 Information not available 06/12/2020 Are You Passively Exposed To Smoke? Yes Information not available 11/23/2020 Do You Or Have You Ever Used Smokeless Tobacco? Never Used Smokeless Tobacco Information not available 03/23/2019 How Much Tobacco Do You Smoke? 0.5 PPD [email or web address] Information not available 07/18/2014 General Stress Level Medium Information not available 04/16/2017 Do You Feel Stressed (tense, Restless, Nervous, Or Anxious, Or Unable To Sleep At Night)? [id number] Information not available 05/23/2021 Do You Use Any Illicit Or Recreational Drugs? Yes Occ Marijuanna Information not available 03/21/2024 Do You Use Sunscreen Routinely? No As Needed Information not available 01/24/2022 Has Tobacco Cessation Counseling Been Provided? Yes [email or web address] Information not available 11/12/2018 On What Date Was Tobacco Cessation Counseling Provided? 07/18/2024 Information not available 07/18/2024 How Many Years Have You Smoked Tobacco? 22 03/21/24 Information not available 03/21/2024 Do You Or Have You Ever Used Any Other Forms Of Tobacco Or Nicotine? No Information not available 11/23/2020 Sex: Female Functional Status Question Answer Note LastModified by Organizat ion Details LastModified Time Are you able to care for yourself? Yes Information not available 11/23/2020 What is your exercise level? Occasional Information not available 03/21/2024 Mental Status None recorded. Family History Relationship Description Onset Age of this Age Resolved Age Notes LastModified by Organization Details LastModified Time Mother Diabetes mellitus [email or web address] Not available 01/2016 15:05:45 Mother Hypertensive disorder [email or web address] Not available 01/2016 15:05:45 Mother Infiltrating duct carcinoma of breast [email or web address] Not available 08/19 10:04:21 Notes:PATERNAL PARENTS--[JILL BETTAMIKO] Medical History Condition Response Coronary Artery Disease N Other N Atrial Fibrillation N High Blood Pressure Y Depression Y COPD N Blood Clots N Anxiety Disorder Y Muscle, Joint, or Bone Problems Y Acid Reflux (GERD) Y Cancer Y Stroke N ADHD N High Cholesterol Y Liver Disease N Schizophrenia N Headaches N Thyroid Problems N Kidney or Bladder Problems N GI Problems Y Eating Disorder N Skin Problems N Anemia N Heart Attack ([place]) N Diabetes Y Seizures/Epilepsy N Asthma Y Allergies Y Substance Abuse N Hepatitis N Hypertension Y Heart Failure N Osteoporosis N Gynecological History Statement/Question Response Abnormal Pap N Date of LMP 07/03/2021 STIs/STDs N Most Recent Mammogram 02/22/2016 Age at Menarche 12 Current Control Method Tubal Ligat ion Age at First Child 19 Sexually Active? Y Menses Monthly N Date of Last Pap Smear 12/21/2020 Sexual Problems? N LMP Definite Obstetrics History GPAL:G 5 P 4 0 1 4 Type Value Multiple Births 0 Full Term 4 Induced 0 Spontaneous 1 Premature 0 Living 4 Ectopics 0 Total 5 Immunizations Vaccine Type Date Status Note Provider Name and Address Organization Details Recorded Time Influenza, split virus, quadrivalent, preservative 06/12/20 20 cancelled patient objection Iva Rodarte APN, YAMELC Attn: Accounting, [address] [facility], [place], [address], [facility] - [place] 06/12/2020 11:15:10 Influenza, split virus, quadrivalent, preservative 07/20/20 20 cancelled patient objection Iva Rodarte, [employer], [employer]C Attn: Accounting, [address] [facility], [place], [address], [facility] - [place] 07/20/2020 12:54:37 Influenza, split virus, quadrivalent, preservative 05/23/20 21 cancelled patient objection Iva Rodarte, [employer] WORK[employer], [employer] BU[employer]DER-C Attn: Accounting, [address] [facility], [place], [address], [facility] - [place] 05/23/2021 10:11:49 Influenza, split virus, quadrivalent, preservative 06/04/20 21 cancelled patient objection Iva Rodarte, [employer] WORK[employer], [employer] BU[employer]DER-C Attn: Accounting, [address] [facility], [place], [address], [facility] 06/04/2021 14:53:30 Tdap 05/26/20 23 completed Iva Rodarte, [employer]AR[employer] WORKER, [employer] BU[employer]DER-C Attn: Accounting, [address] [facility], [place], [address], [facility] 05/26/2023 14:50:08 pneumococcal polysaccharide PPV23 04/22/20 12 completed Ivatata Rodarte, [employer]AR[employer] WORKER, [employer] BUILDER-C Attn: Accounting, [address] [facility], [place], [address], [facility] - SI 09/07/2018 09:59:37 Tdap 11/04/19 13 completed Iva Rodarte, [employer]AR[employer] WORKER, [employer] BUILDER-C Attn: Accounting, [address] [facility], [place], [address], [facility] - SI 09/07/2018 09:59:37 pneumococcal polysaccharide PPV23 03/31/20 16 completed Iva Rodarte, [employer]AR[employer] WORKER, DO[employer] BUILDER-C Attn: Accounting, [address] [facility], [place], [address], [facility] - [place] 07/28/2022 09:45:43 Past Encounters Encounter ID Performer Location Encounter Start Date Encounter Closed Date Diagnosis/Indication Diagnosis SNOMED-CT Code Diagnosis ICD10 Code Diagnosis Note [id number] Liliane Moore [facility] (Adult Med) [address] [place] [address] 07/18/2014 14:09:32 07/18/2014 18:07:52 Acute bronchitis [id number] Cough not improving with otc medication s. Allergic to Penicillin and Azithromyc in. Levaquin 500 mg po daily for 1 week. Tessalon pearls 100 mg po tid. Advised patient to quit smoking. [id number] [address] Mancilla ([place] [address]) [address] [facility] [place] [address] 09/15/2014 11:30:38 09/15/2014 17:09:43 Gynecologic examination 39406648 Chronic vulvitis 1206025 [id number] MD Xiao Roberts ([place] [address]) [address] [facility] [place] [address] 10/10/2014 14:25:28 10/10/2014 15:39:48 Chronic vulvitis 3153933 [id number] MD Xiao Roberts ([place] [address]) [address] [facility] [place] [address] 01/21/2016 14:48:48 01/22/2016 12:13:30 Menorrhagia 739205380 N92.0 Screening for malignant neoplasm of breast 988980957 Z12.31 [id number] [facility] Manc[facility] ([facility] [address] [facility] [place] [address] 03/16/2017 16:31:41 03/17/2017 08:56:08 Venereal disease screening 588441176 Z11.3 Herpes simplex 86290362 B00.9 Bacterial vaginosis 4197 07730 N76.0 [id number] MD Xiao Roberts ([place] [address]) [address] [facility] [place] [address] 04/03/2017 13:54:29 04/06/2017 10:06:08 Genital herpes simplex 85529999 A60.9 [id number] Iva Rodarte APN, DOOR BUILDER-C [place] (Adult Med) [address] [place] [address] 04/16/2017 09:38:37 04/16/2017 16:28:13 Adult health examination 553084330 Z00.00 well exam and lab work to be done yearly, healthy diet advised Diabetes mellitus 017072 09 E11.9 Pt getting toes done this weekend; taking metformin 1000mg bid Hypertensive disorder 38 415393 I10 start lisinopril 10 mg to lower BP and protective of kidneys Anxiety disorder 3169910 06 F41.9 Visteril at HS or in middle of night if needed Nausea 445404655 R11.0 Zofran prn, GI referral as discussed Tobacco de 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 [id number] Iva Rodarte APN, MAMI Charlton (Adult Med) [address] [place] [address] 05/20/2017 09:20:44 05/21/2017 16:10:09 Diabetes mellitus 41130607 E11.9 Taking metformin 1000 mg bid, dwp R/B/SE of statin and RAMONA, will start simvastati n 5 mg Hypertensive disorder 38 176668 I10 start lisinopril 10 mg (may take 1/2 tab for now) to lower BP and protective of kidneys Anxiety disorder 7363484 06 F41.9 hydroxyzin e at HS or in middle of night if needed Nausea 232799550 R11.0 Zofran prn, GI referral as discussed Tobacco de pendence syndrome 74050887 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 [id number] Luann Charlton (Adult Med) [address] [place] [address] 05/27/2017 09:19:46 05/27/2017 09:49:06 [id number] [facility] [address] [facility] [address] 06/10/2017 09:19:50 06/15/2017 09:56:40 Hypertensive disorder 53028796 I10 start lisinopril 10 mg (may take 1/2 tab for now) to lower BP and protective of kidneys [id number] Iva Rodarte APN, MAMI Charlton (Adult Med) [address] [place] [address] 07/23/2017 09:15:02 07/23/2017 13:35:57 Hypertensive disorder 17694841 I10 lisinopril 10 mg to lower BP and protective of kidneys Diabetes mellitus 424880 09 E11.9 Taking metformin 1000 mg bid, dwp R/B/SE of statin and RAMONA, Pt jordan not want statin at this time; LDL-104; a1c was 6.9 drawn by GI Tobacco de pendence syndrome 40096068 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 Overweight 171401826 E66 .3 advised low fat, low cholestero l, low carb diet, regular exercise and weight reduction. [id number] JEREMIAS [facility] ([facility] [address] [facility] [address] [place] [address] 08/13/2017 11:28:29 08/13/2017 16:01:46 Venereal disease screening 014759575 Z11.3 Genital he rpes simplex 89944891 A60.9 Vaginal pain 12383318 R1 0.2 [id number] MD Xiao Roberts [facility] ([facility] [address] [facility] [place] [address] 08/27/2017 10:57:45 08/28/2017 12:17:24 Body mass index 25-29 - overweight 890031415 Z68.26 Herpes simplex 25381942 B00.9 [id number] Iva Rodarte APN, MAMI [place]USU (Adult Med) [address] [place] [address] 10/26/2017 09:15:39 10/27/2017 09:08:12 Anxiety disorder 054688299 F41.9 hydroxyzin e at HS or in middle of night if needed Hypertensive disorder 38 332898 I10 lisinopril 10 mg to lower BP and protective of kidneys Diabetes mellitus 646856 09 E11.9 Taking metformin 1000 mg bid, dwp R/B/SE of statin and RAMONA, Pt jordan not want statin at this time; LDL-104; a1c was 6.9 drawn by GI Tobacco de pendence syndrome 18233055 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 Dysuria 81259310 R30.0 Overweight 400627152 E66 .3 advised low fat, low cholestero l, low carb diet, regular exercise and weight reduction. [id number] Iva Rodarte APN, MAMI OWUSU (Adult Med) [address] [place] [address] 12/01/2017 09:11:28 12/02/2017 12:48:22 Spasm of back muscles 975267438 M62.830 Will rx muscle relaxer and steroid burst, dwp r/b/se and increased BS, dwp to cont with chiropract or but if not improving will suggest she return to spine surgeon that she was est with previously Hypertensive disorder 38 624802 I10 lisinopril 10 mg to lower BP and protective of kidneyslik latisha elevated today due to pt in intense pain when walking. dwp to cont medication as ordered [id number] Iva Rodarte APN, FNP-C [place] (Adult Med) [address] [place] [address] 01/27/2018 09:12:42 01/29/2018 16:07:14 Hypertensive disorder 78109606 I10 lisinopril 10 mg to lower BP and protective of kidneysdwp to cont medication as ordered Diabetes mellitus 876726 09 E11.9 Taking metformin 1000 mg bid,dwp R/B/SE of statin and RAMONA,Pt jordan not want statin at this time; LDL-104;a1 c was 6.9- recheck lab today Tobacco de pendence syndrome 86379924 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 Anxiety disorder F41.9 hydroxyzin e at HS or in middle of night if needed Endocrine/ metabolic screening 149751968 Z13.097 [id number] Iva Rodarte APN, FNP-C [place] (Adult Med) [address] [place] [address] 05/05/2018 09:30:44 05/05/2018 10:39:53 Diabetes mellitus 86956839 E11.9 Taking metformin 1000 mg bid,dwp R/B/SE of statin and RAMONA,Pt jordan not want statin at this time; LDL-104;a1 c was 6.9, 7.0, recheck today Hypertensive disorder 38 991749 I10 lisinopril 10 mg to lower BP and protective of kidneysdwp to cont medication as ordered Tobacco de pendence syndrome 02545340 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 now down to only in afternoon Anxiety disorder F41.9 hydroxyzin e at HS or in middle of night if needed Overweight 200332621 E66 .3 advised low fat, low cholestero l, low carb diet, regular exercise and weight reduction. Anemia 932188680 D64.9 was normal at last check; recheck lab at next lab draw-3 or not later than 6 months (Spring 2018) [id number] Iva Rodarte APN, MAMI Charlton (Adult Med) [address] [place] [address] 09/07/2018 09:22:54 09/07/2018 12:21:11 Diabetes mellitus 10277623 E11.9 Taking metformin 1000 mg bid,dwp R/B/SE of statin and RAMONA,Pt jordan not want statin at this time; LDL-104;a1 c was 6.9, 7.0, recheck today-6.5 Hypertensive disorder 38 511182 I10 lisinopril 10 mg to lower BP and protective of kidneysdwp to cont medication as ordered Tobacco de pendence syndrome 08764207 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 now down to only in afternoon Anxiety disorder 3289735 06 F41.9 hydroxyzin e at HS or in middle of night if needed Overweight 727349350 E66 .3 advised low fat, low cholestero l, low carb diet, regular exercise and weight reduction. Backache 440587228 M54.9 thoracic spine tender to touch with radiation to right shoulder, no changes with ROM, aches and flexeril 5 mg not helping but 10 mg was too strong, will change to baclofen, dwp to cont ice and heat and biofreeze topical [id number] Iva Rodarte APN, MAMI Charlton (Adult Med) [address] [place] [address] 09/23/2018 08:51:40 09/24/2018 09:04:58 Cough 81029391 R05 LSCTA; Tessalon perles to help with cough Acute non- suppurative serous otitis media 596317304 H65.03 bilateral TM's with erythema and purulent middle ear fluid, start bactrim Tobacco user 242707106 Z 72.0 Smoking cessation encouraged . [id number] CECI Lott (Adult Med) [address] [place] [address] 11/12/2018 09:49:32 11/12/2018 14:23:46 Tobacco user 462900823 Z72.0 advised on smoking cessation as it can increase risk of URI. Acute otitis media 69850 03 H66.92 Cont allergy meds, start flonase for lower turbinate edema. Discussed ENT anatomy and reason for recurrent ear infections if her eustachian tube is blocked or she has persistent inflammati on from allergies and/or smoking. Cough 19703498 R05 likely due to post nasal drainage; treat rhinorrhea w/ claritin. [id number] Iva Rodarte APN, FNP-C [place] (Adult Med) [address] [place] [address] 12/23/2018 08:56:25 12/24/2018 10:19:07 Viral gastroenteritis 618377024 A08.4 A08.39 no longer having symptoms, dwp to cont hydration, call if any symptoms return Gastropare sis syndrome 683704280 K31.84 dwp symptoms and working on diet and blood sugar vs GI bug Fear of flying 340795315 F40.243 Pt has flight to [place] soon, hx of panic, one time benzo approved [id number] Iva Rodarte APN, FNP-C [place] (Adult Med) [address] [place] [address] 03/23/2019 10:46:41 04/13/2019 08:44:38 Hypertensive disorder 94326313 I10 lisinopril 10 mg to lower BP and protective of kidneysdwp to cont medication as ordered Diabetes mellitus 898150 09 E11.9 Taking metformin 1000 mg bid,dwp R/B/SE of statin and RAMONA,Pt jordan not want statin at this time; LDL-104;a1 c was 6.9, 7.0, 6.5, recheck today-6.4 Tobacco de pendence syndrome 73714781 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 now down to only in afternoon Anxiety disorder 2572227 06 F41.9 hydroxyzin e at HS or in middle of night if needed Overweight 386424668 E66 .3 advised low fat, low cholestero l, low carb diet, regular exercise and weight reduction. Endocrine/ metabolic screening 231594241 Z13.228 Dysfunctio n of eustachian tube 43281646 H68.002 left clear middle ear fluid, start flonase [id number] Iva Rodarte APN, FNP-C [place] (Adult Med) [address] [place] [address] 04/27/2019 08:39:39 04/28/2019 10:44:29 Pain in right heel 9901079117 145614 M79.671 right posterior heel brigid's deformity present;dw p naproxen use, refer to podiatry Dysfunctio n of eustachian tube 47996984 H68.002 left clear middle ear fluid, resume flonase, Posterior rhinorrhea 758 20979 R09.82 cont flonase, may use one a day otc allergy med as well [id number] Iva Rodarte APN, FNP-C [place] (Adult Med) [address] [place] [address] 05/12/2019 08:29:06 05/13/2019 08:53:42 Dyspnea 378398260 R06.02 has used inhaler in past, dwp prn use, Cough 67793220 R05 LSCTA; Tessalon perles to help with cough Viral gastroenteritis 11 4079383 A08.4 A08.39 no longer having symptoms, dwp to cont hydration, call if any symptoms return [id number] MD Xiao Roberts 14 OB [address] [facility] [address] [place] [address] 10/04/2019 10:18:44 10/05/2019 12:20:04 Gynecologic examination 67397317 Z01.419 Screening for malignant neoplasm of breast 096397042 Z12.31 Herpes simplex 89527111 B00.9 [id number] Iva Rodarte APN, FNP-C [place] (Adult Med) [address] [facility] [place] [address] 11/08/2019 07:58:48 11/09/2019 08:37:07 Hypertensive disorder 00595752 I10 lisinopril 10 mg to lower BP and protective of kidneysdwp to cont medication as ordered Diabetes mellitus 238942 09 E11.9 Taking metformin 1000 mg bid,dwp R/B/SE of statin and RAMONA,a1c was 6.9, 7.0, 6.5will adjust dose based on a1c level Gastroesop hageal reflux disease without esophagitis 882583348 K21.9 stable on PPI Endocrine/ metabolic screening 937214306 Z13.228 Emotional upset 60307368 5 R45.89 increasing emotions, tearful more at times lately, no period in two years, feels like her body is still changing, unsure of what to do, dwp will start with labs, may need f/u with gyne [id number] Iva Rodarte APN, MAMI Charlton (Adult Med) [address] [place] [address] 12/23/2019 08:09:34 12/26/2019 07:14:36 Lack of libido 050257269 R68.82 dwp hormone levels, will trial wellbutrin , if not improved will need to follow up with gyne Mixed insomnia 03759891 G47.09 cont melatonin 10 mg, dwp sleep hygiene practices [id number] Iva Rodarte APN, MAMI Charlton (Adult Med) [address] [facility] [place] [address] 05/15/2020 10:01:56 05/17/2020 18:03:28 Dyspnea 794511701 R06.02 has used inhaler in past, dwp prn use, Tobacco de pendence syndrome 64226817 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 Has used chantix in past, did have some nightmares ; has tried other options in past Dysfunctio n of eustachian tube 54925032 H68.002 hx of ome, resume flonase, [id number] Iva Rodarte APN, ZABRINA-Bonita Charlton (Adult Med) [address] [place] [address] 06/12/2020 08:30:23 06/12/2020 21:44:27 Influenza vaccination declined 901156197 Z28.21 Dyspnea 275616443 R06.02 has used inhaler in past, dwp prn use, Tobacco de pendence syndrome 35690792 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 Has used chantix in past, did have some nightmares ; has tried other options in past but wants to try again; Dysfunctio n of eustachian tube 21197173 H68.002 hx of ome, resume flonase, Hypertensive disorder 38 761467 I10 lisinopril 10 mg to lower BP and protective of kidneysdwp to cont medication as ordered Diabetes mellitus 988071 09 E11.9 Taking metformin 1000 mg bid,dwp R/B/SE of statin and RAMONA,a1c was 6.9, 7.0, 6.5will adjust dose based on a1c level Gastroesop hageal reflux disease without esophagitis 515053359 K21.9 stable on PPI [id number] Iva Rodarte APN, MAMI Bobto (Adult Med) [address] [place] [address] 07/20/2020 08:32:14 07/23/2020 11:38:20 Influenza vaccination declined 400890819 Z28.21 Acute righ t otitis media 482933786 H66.91 right sided ear pain, on flonase and antihistam ine; will cover with abx for bacterial infection, pt allergy to pcn, dwp options, will trial cephalospo rin, advised to stop if reaction Nausea 948953001 R11.0 Zofran prn, GI referral as discussed Tobacco user 005993791 Z 72.0 Smoking cessation encouraged . [id number] Iva Rodarte APN, ZABRINA-Bonita Bobto (Adult Med) [address] [place] [address] 08/08/2020 10:28:53 08/09/2020 10:38:01 Dysfunction of eustachian tube 30827119 H68.002 hx of ome, resume flonase instead of po steroids d/t t2dm, pt agrees to try them longer this time, will also give rx for topical ear drop with steroid Restless legs 20139565 G 25.81 resume gabapentin 300 mg q hs and 100 mg qam and noon Hypertensive disorder 38 076108 I10 lisinopril 10 mg to lower BP and protective of kidneysdwp to cont medication as ordered [id number] Iva Rodarte APN, MAMI Charlton (Adult Med) [address] [place] [address] 11/23/2020 09:36:27 11/26/2020 08:25:02 Hypertensive disorder 31396924 I10 lisinopril 10 mg to lower BP and protective of kidneys dwp to cont medication as ordered Diabetes mellitus 807818 09 E11.9 Taking metformin 1000 mg bid, dwp R/B/SE of statin and RAMONA, a1c was 6.6 in Dec, due in January 2021 Gastroesop hageal reflux disease without esophagitis 364238655 K21.9 stable on PPI Tobacco de pendence syndrome 28170317 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 Has used chantix in past, did have some nightmares ; has tried other options in past but wants to try again; Primary insomnia 1434823 F51.01 has been on melatonin; would like adi Luna trying trazadone instead, start with half a tab and titrate as needed to full tablet Overweight 390951621 E66 .3 advised low fat, low cholestero l, low carb diet, regular exercise and weight reduction. Nausea 830137881 R11.0 Zofran prn, GI referral as discussed Cough 69963786 R05 LSCTA; Missael benson to help with cough [id number] MD Xiao Roberts 14 OB [address] [facility] [address] [place] [address] 12/21/2020 10:50:34 12/24/2020 12:13:03 Gynecologic examination 26768837 Z01.419 Screening for malignant neoplasm of breast 128557516 Z12.31 [id number] Iva Rodarte APN, DOOR BUILDER-C [place] (Adult Med) [address] [place] [address] 02/26/2021 09:35:29 03/12/2021 20:48:56 Anxiety disorder 263644538 F41.9 hydroxyzin e at HS or in middle of night if needed Gastroesop hageal reflux disease without esophagitis 671054201 K21.9 stable on PPI, dwp weaning down to prn Hypertensive disorder 38 420730 I10 lisinopril 10 mg to lower BP and protective of kidneys dwp to cont medication as ordered Diabetes mellitus 132122 09 E11.9 Taking metformin 500 mg 2 in am and 1 in pm; dwp R/B/SE of statin and RAMONA, a1c was 6.6 in Dec, 6.7 todaycont working on diet for better control Tobacco de pendence syndrome 59991549 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 Has used chantix in past, did have some nightmares ; has tried other options in past but wants to try again; Primary insomnia 6893395 F51.01 has been on melatonin; would like adi Luna trying trazadone instead- increasing to 150 mg q hs [id number] Iva Rodarte APN, MAMI Charlton (Adult Med) [address] [place] [address] 03/27/2021 08:03:01 03/28/2021 11:41:06 Upper respiratory infection 34483160 J06.9 was exposed by family in same household, reviewed idph guidelines with pt, will treat symptoms Nausea 223966184 R11.0 Zofran prn, GI referral as discussed [id number] Iva Rodarte APN, MAMI Charlton (Adult Med) [address] [place] [address] 05/23/2021 09:17:59 05/31/2021 09:38:12 Hypertensive disorder 70094067 I10 lisinopril 10 mg to lower BP and protective of kidneys dwp to cont medication as ordered Gastroesop hageal reflux disease without esophagitis 334773907 K21.9 stable on PPI, dwp weaning down to prn Anxiety disorder 4040004 06 F41.9 hydroxyzin e at HS or in middle of night if needed Diabetes mellitus 198168 09 E11.9 Taking metformin 500 mg 2 in am and 1 in pm; dwp R/B/SE of statin and RAMONA, a1c was 6.6 in Dec, 6.7 todaycont working on diet for better control Tobacco de pendence syndrome 18325967 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 Influenza vaccination declined 390466792 Z28.21 Endocrine/ metabolic screening 990264673 Z13.228 Strain of muscle of left shoulder 2085127502 3415492 S46.012A slight reduction to ROM, pain in deltoid with lateral movement and reaching above head, pain goes to posterior with some tension to neck, hx of herniated discs in lower back,will trial medrol dose pack, dwp SE, r, b, also heat/ice, gentle stretching [id number] Iva Rodarte APN, FNP-C [place] (Adult Med) [address] [facility] [place] [address] 06/04/2021 14:28:51 06/05/2021 07:18:15 Influenza vaccination declined 785149190 Z28.21 Anxiety disorder 4797910 06 F41.9 hydroxyzin e at HS or in middle of night if needed Intermitte nt palpitations 289966703 R00.2 lasting seconds, no cp or sob;dwp will start work up and will send for ekg while waiting on referral [id number] Iva Rodarte APN, FNP-C [place] (Adult Med) [address] [facility] [place] [address] 07/19/2021 12:16:49 07/22/2021 09:20:18 Pain of right elbow joint 7456781053 9239333 M25.521 tender on all aspects of joint, will send medrol dose pack, dwp JOSUÉ, will send for xray if not improving Posterior rhinorrhea 758 68112 R09.82 cont flonase, may use one a day otc allergy med as well Hypertensive disorder 38 764159 I10 elevated today, pt states she did not take her med yet, advised compliance with meds cont lisinopril 10 mg to lower BP and protective of kidneys dwp to cont medication as ordered [id number] Iva Rodarte APN, FNP-C [place] (Adult Med) [address] [place] [address] 10/04/2021 08:29:04 10/07/2021 07:45:42 Diabetes mellitus 64639789 E11.9 Taking metformin 500 mg 2 in am and 1 in pm; dwp R/B/SE of statin and RAMONA, a1c was 6.6 in Dec, 6.7cont working on diet for better control Gastroesop hageal reflux disease without esophagitis 851979484 K21.9 stable on PPI, dwp weaning down to prn Hypertensive disorder 38 601936 I10 elevated today, pt states she did not take her med yet, advised compliance with meds cont lisinopril 10 mg to lower BP and protective of kidneys dwp to cont medication as ordered Tobacco de pendence syndrome 30904256 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 Pain of ri ght elbow joint 6091481374 0427609 M25.521 tender on all aspects of joint, will send medrol dose pack, dwp JOSUÉ, will send for xray if not improvingm edrol dose pack only helped 1-2 days then the pain started Hot sweats 111648070 R61 dwp to see ob gynefamily hx of early menopausel ow libido, hot flashes Endocrine/ metabolic screening 468736204 Z13.228 Nausea 648821731 R11.0 Zofran prn, GI referral as discussed [id number] Iva Rodarte APN, MAMI Charlton (Adult Med) [address] [place] [address] 01/24/2022 10:23:07 01/27/2022 10:36:25 Diabetes mellitus 56012190 E11.9 Taking metformin 500 mg 2 in am and 1 in pm; dwp R/B/SE of statin and RAMONA, a1c improvedco nt working on diet for better control Gastroesop hageal reflux disease without esophagitis 535753095 K21.9 stable on PPI, dwp weaning down to prn Hypertensive disorder 38 587173 I10 elevated today, pt states she did not take her med yet, advised compliance with meds cont lisinopril 10 mg to lower BP and protective of kidneys dwp to cont medication as ordered Tobacco de pendence syndrome 47608683 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 Hot sweats 801507678 R61 dwp to see ob gynefamily hx of early menopausel ow libido, hot flashes Nausea 388137880 R11.0 Zofran prn, GI referral as discussed [id number] Iva Rodarte APN, MAMI Charlton (Adult Med) [address] [facility] [place] [address] 02/07/2022 15:44:18 02/11/2022 08:32:33 Dysuria 27533237 R30.0 urine dip negative, will send for culture and notify pt if abx needed, dwp to increase fluids and RTO if increase in pain or fever or other changes occur. [id number] Iva Rodarte APN, MAMI Charlton (Adult Med) [address] [place] [address] 03/14/2022 11:26:19 03/17/2022 09:32:12 Dysuria 21131964 R30.0 urine dip negative, will treat since she just stopped abx less than 2 weeks ago,dw med for recurrent uti Recurrent urinary tract infection 454479848 N39.0 [id number] Iva Rodarte APN, MAMI Charlton (Adult Med) [address] [place] [address] 07/28/2022 09:32:24 07/29/2022 09:22:29 Diabetes mellitus 26315912 E11.9 Taking metformin 500 mg 2 in am and 1 in pm; dwp R/B/SE of statin and RAMONA, a1c 6.8;cont working on diet for better control Gastroesop hageal reflux disease without esophagitis 434414446 K21.9 stable on PPI, dwp weaning down to prn Hypertensive disorder 38 248687 I10 elevated today, pt states she did not take her med yet, advised compliance with meds cont lisinopril 10 mg to lower BP and protective of kidneys dwp to cont medication as ordered Tobacco de pendence syndrome 53112222 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 Nausea 893004997 R11.0 Zofran prn, GI referral as discussed Screening for malignant neoplasm of colon 257734548 Z12.11 [id number] MD Zoltan CUELLAR ([employer] MANAGER) [address] [place] [address] 12/26/2022 15:52:29 01/01/2023 09:37:51 Herpes zoster 2463848 B02.9 - On antivirals prescribed by urgent care with improvemen t in rash thus far- For acute neuralgia, will start 12-day taper of prednisone starting at 60 mg/day. Can use lidocaine patches nightly as well.- If persistent neuralgia after completing steroid taper, return to clinic for further evaluation . Can consider gabapentin or amitriptyl ine at that time. [id number] Iva Rodarte APN, MAMI Charlton (Adult Med) [address] [place] [address] 02/16/2023 08:45:30 02/18/2023 11:40:54 Diabetes mellitus 15763173 E11.9 Taking metformin 500 mg dwp R/B/SE of statin and RAMONA, a1c 6.8- [facility] working on diet for better control Gastroesop hageal reflux disease without esophagitis 013871710 K21.9 stable on PPI, dwp weaning down to prn Hypertensive disorder 38 217232 I10 elevated today, pt states she did not take her med yet, advised compliance with meds- needs refills cont lisinopril 10 mg to lower BP and protective of kidneys dwp to cont medication as ordered Tobacco de pendence syndrome [id number] 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 Nausea [id number] R11.0 Zofran prn, GI referral as discussed Herpes simplex 11944963 B00.9 cont antiviral therapy- pt takes 500 mg qd [id number] Iva Rodarte APN, MAMI Charlton (Adult Med) [address] [place] [address] 05/26/2023 08:33:26 05/27/2023 11:48:25 Diabetes mellitus 35393051 E11.9 Taking metformin 500 mg dwp R/B/SE of statin and RAMONA, a1c 6.8- 6.9 [facility] working on diet for better control Gastroesop hageal reflux disease without esophagitis 506664542 K21.9 stable on PPI, dwp weaning down to prn Hypertensive disorder 38 915365 I10 elevated today, pt states she did not take her med yet, advised compliance with meds- needs refills cont lisinopril 10 mg to lower BP and protective of kidneys dwp to cont medication as ordered Tobacco de pendence syndrome 31936092 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 Nausea 566765582 R11.0 Zofran prn, GI referral as discussed Candidiasis of vagina 72 058719 B37.31 Administra tion of diphtheria, pertussis, and tetanus vaccine 741453618 Z23 [id number] Iva Rodarte APN, ZABRINA-Bonita Charlton (Adult Med) [address] [place] [address] 09/15/2023 09:48:25 09/16/2023 10:54:22 Diabetes mellitus 04026318 E11.9 Taking metformin 500 mg dwp R/B/SE of statin and RAMONA, a1c 6.8- 6.9cont jardiancec ont working on diet for better control Gastroesop hageal reflux disease without esophagitis 985675518 K21.9 stable on PPI, dwp weaning down to prn Hypertensive disorder 38 566164 I10 advised compliance with meds- needs refills cont lisinopril 10 mg to lower BP and protective of kidneys dwp to cont medication as ordered Tobacco de pendence syndrome 26539194 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 Nausea 812775226 R11.0 Zofran prn, GI referral as discussed Screening mammography of bilateral breasts 2536295706 25977 Z12.31 Primary insomnia 0807654 F51.01 has been on melatonin; would like Ambien, dwp cont trazadone 150 mg q hs Pain of le ft hip joint [id number] 78022 M25.552 exam wnl, FROM, [id number] Iva Rodarte APN, DOOR BUILDER-C Zoltan (Adult Med) [address] [place] [address] 11/23/2023 11:31:48 12/03/2023 21:36:10 Acute sinusitis 66766615 J01.90 sinus pressure with purulent drainage, start abx Cough 82369955 R05.9 prn tessalon perles [id number] Iva Rodarte APN, ZABRINA-Bonita Charlton (Adult Med) [address] [place] [address] 03/21/2024 08:48:51 03/24/2024 09:20:11 Diabetes mellitus 04130804 E11.9 Taking metformin 500 mg dwp R/B/SE of statin and RAMONA, a1c 7.0cont jardiancec ont working on diet for better control Gastroesop hageal reflux disease without esophagitis 578589364 K21.9 stable on PPI, dwp weaning down to prn Hypertensive disorder 38 989240 I10 advised compliance with meds- needs refills cont lisinopril 10 mg to lower BP and protective of kidneys dwp to cont medication as ordered Tobacco de pendence syndrome 40732160 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 Nausea 467967124 R11.0 Zofran prn, GI referral as discussed Primary insomnia 7779362 F51.01 has been on melatonin; would like adi Luna cont trazadone 150 mg q hs Pain of le ft hip joint [id number] 00343 M25.552 exam wnl, FROM, [id number] Iva Rodarte APN, MAMI Charlton (Adult Med) [address] [place] [address] 06/30/2024 08:43:19 07/05/2024 10:34:22 Diabetes mellitus 41684376 E11.9 Taking metformin 500 mg dwp R/B/SE of statin and RAMONA, a1c 7.0, 6.6 todaycont jardiancec ont working on diet for better control Gastroesop hageal reflux disease without esophagitis 314894853 K21.9 stable on PPI, dwp weaning down to prn Hypertensive disorder 38 493018 I10 advised compliance with meds- needs refills cont lisinopril 10 mg to lower BP and protective of kidneys dwp to cont medication as ordered Tobacco de pendence syndrome 10479918 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 Nausea 548463538 R11.0 Zofran prn, GI referral as discussed Primary insomnia 7947936 F51.01 has been on melatonin; would like adi Luna cont trazadone 150 mg q hs Fear of flying 847639146 F40.243 Pt has flight to [place] , with 2 week cruise to [facility] of panic, one time benzo approved Motion sickness 47507514 T75.3XXA [id number] Iva Rodarte APN, MAMI Charlton (Adult Med) [address] [place] [address] 07/18/2024 11:46:58 07/21/2024 16:40:24 Motion sickness 21325665 T75.3XXA prn scopolamin e patch Hypertensive disorder 38 025628 I10 advised compliance with meds;cont lisinopril 10 mg to lower BP and protective of kidneys dwp to cont medication as ordered Pain of le ft elbow joint [id number] 8101680 M25.522 ttp lateral left elbow, will refer as requested Generalize d anxiety disorder 98662522 F41.1 resume buspar, start with one tab q hs then half during the day Postviral cough 21627073 4 B94.8 prn missael haddadlisseth Health Concerns Section Related Observation LastModified by Organization Detcharly ls LastModified Time None Recorded Concern Status LastModified by Organization Details LastModified Time None Recorded Advance Directives Directive N: Payers Encounter Date Sequence Insurance Name Policy Number Policy Rowley Covered Member ID Rowley Member ID Guarantor Name 09/15/2023 1 *SELF PAY* Barbara bender Doug 09/15/2023 1 [employer] [id number] Melvin Camacho [id number] Melvin Camacho 11/23/2023 1 *SELF PAY* Barbara bender Anyall 03/21/2024 1 [facility] (PPO) Emily Camacho [id number] Melvin Camacho 06/30/2024 1 [place] [id number] Emily Camacho [id number] Melvin Camacho 07/18/2024 1 [place] [id number] Emily Camacho [id number] Melvin Camacho Notes Date Note Type Note Provider Name and Address Organization Details Recorded Time 09/15/2023 text/html Diabetes F/UReported bypatient.Review finger sticks:fasting: Labs:last A1C result: 6.6 Context:normal range of home blood sugars (in the low 100s); checking feet regularly;not seeing eye doctor yearly Associated Symptoms:no dizziness; no headaches; no increased thirst; no increased appetite; no increased urination; no blurred vision; no numbness of feet; no calluses on feetNotes:trying to manage weight better,Hypertensio n F/UReported bypatient.Associat ed Symptoms:no dizziness; no lightheadedness; no chest pain; no shortness of breath; no palpitations; no edema; no calf pain with exertion Lifestyle:regular exercise; limiting/avoiding salt Medications:taking medications as directed; no side effects from medication Wants mammo ordered. Mom recently found out she has breast duct cancer. pt c/o left thigh pain- feels like a muscle pain. Unable to pull leg or chest or any stretching. Having issues sleeping- wants to take trazadone again restless legs; used to be on medication, worse when still, relieved by movement and now somewhat better with gabapentin; pt still trying to quit smoking, back and neck surgeon believes she may need to have back surgery, has tried to quit cold turkey, used chantix 15 years ago; smokes- 1/2 ppd ETOH- rareDiet- regGYNE- Zayas Iva Rodarte APN, ZABRINA-C Attn: Accounting[address] [facility], [place], [address], [facility] 09/16/2023 00:11:09 11/23/2023 text/html Pt. has had gree n mucus for 2 weeks. She has a cough and runny nose. She coughs worse at night. All the tests at Urgent Care came back negative at 2 weeks ago. Iva Rodarte APN, YAMELC Attn: Accounting[address] [facility], [place], [address], [facility] 11/23/2023 12:02:08 03/21/2024 text/html Diabetes F/UReported bypatient.Review finger sticks:fasting: Labs:last A1C result: 6.6 Context:normal range of home blood sugars (in the low 100s); checking feet regularly;not seeing eye doctor yearly Associated Symptoms:no dizziness; no headaches; no increased thirst; no increased appetite; no increased urination; no blurred vision; no numbness of feet; no calluses on feetNotes:trying to manage weight better,Hypertensio n F/UReported bypatient.Associat ed Symptoms:no dizziness; no lightheadedness; no chest pain; no shortness of breath; no palpitations; no edema; no calf pain with exertion Lifestyle:regular exercise; limiting/avoiding salt Medications:taking medications as directed; no side effects from medication Having issues sleeping- wants to take trazadone again restless legs; used to be on medication, worse when still, relieved by movement and now somewhat better with gabapentin; pt still trying to quit smoking, back and neck surgeon believes she may need to have back surgery, has tried to quit cold turkey, used chantix 15 years ago; smokes- 1/2 ppd ETOH- rareDiet- regGYNE- Zayas Iva Rodarte APN, ZABRINA-C Attn: Accounting[address] [facility], [place], [address], [facility] - COUNTS INCLUDE 234 BEDS AT THE [facility] 03/23/2024 16:51:41 06/30/2024 text/html Diabetes F/UReported bypatient.Review finger sticks:fasting: Labs:last A1C result: 6.6 Context:normal range of home blood sugars (in the low 100s); checking feet regularly;not seeing eye doctor yearly Associated Symptoms:no dizziness; no headaches; no increased thirst; no increased appetite; no increased urination; no blurred vision; no numbness of feet; no calluses on feetNotes:trying to manage weight better,Hypertensio n F/UReported bypatient.Associat ed Symptoms:no dizziness; no lightheadedness; no chest pain; no shortness of breath; no palpitations; no edema; no calf pain with exertion Lifestyle:regular exercise; limiting/avoiding salt Medications:taking medications as directed; no side effects from medication restless legs; used to be on medication, worse when still, relieved by movement and now somewhat better with gabapentin; pt still trying to quit smoking, back and neck surgeon believes she may need to have back surgery, has tried to quit cold turkey, used chantix 15 years ago; smokes- 1/2 ppd ETOH- rareDiet- regGYNE- Marquez Rodarte APN, DOOR BUILDER-C Attn: Accounting[address] [facility], [place], [address], [facility] - COUNTS INCLUDE 234 BEDS AT THE [facility] 06/30/2024 09:35:47 07/18/2024 text/html dx with tennis elbow 2 years ago and had surgery on right arm. states her left arm now feels the same way and would like order to PT and go see dr Warner Mcnair again. has been using ice and IBU. cannot lift anything or move her arm. recently had panic attack due to family issues and would like something to calm her nerves. took buspar years ago, ok to try again; denies SI or HI; Iva Rodarte APN, DOOR BUILDER-C Attn: Accounting[address] [facility], [place], [address], [facility] 07/18/2024 13:35:02 OBGyn Episode No OBEpisode recorded.
[2024-10-12 14:17] LABS: Anion Gap 12 mmol/L (4-12); Blood Urea Nitrogen 9 mg/dL (7-17); Calcium 9.3 mg/dL (8.4-10.2); Carbon Dioxide 23 mmol/L (22-30); Chloride 103 mmol/L (98-107); Estimated Glomerular Filt Rate > 60; Glucose 123 mg/dL (65-110); Potassium 3.8 mmol/L (3.4-5.0); Sodium 138 mmol/L (137-145)
== END 2024-10-12 12:40 | disposition home or self-care (01) ==
PROVIDERS: Anesthesiology; PCP Nurse Practitioner Family; Visit Provider Orthopaedic Surgery
DX: Z01.818 Encounter for other preprocedural examination (principal); I10 Essential (primary) hypertension; E11.9 Type 2 diabetes mellitus without complications
CPT/HCPCS: 36415; 80048; 93005

== ENCOUNTER 2024-10-18 01:00 | Day surgery (SDC) | payer BC, SELFPAY ==
--- NOTE | 2024-10-11 10:48 | PC.NURSE ---
Report to the Outpatient Waiting Room, entrance under the green pavilion located off [facility], at time _1130_ on date _[id number]_. Planned Procedure Time: _130pm_.? Time changes happen often and if your time is changed the preop area will call you the afternoon before. - You and your visitor will be asked to self-screen and do not enter if you have any COVID symptoms. Please call surgeon if you need to reschedule. - A mask is optional within the hospital at this time. Patients may have clear liquids (water, carbonated beverages, clear teas, apple juice) until 3 hours prior to surgery with a maximum of 20 ounces. - No food from midnight until time of surgery and no smoking, or chewing tobacco (or any form of nicotine). No chewing gum, candy or mints. Take only the following medications with a SIP of water on the morning of surgery: __None DO NOT STOP ANY OF YOUR OTHER PRESCRIPTION MEDICATIONS PRIOR TO SURGERY EXCEPT THE FOLLOWING Hold all vitamins and supplements for 3 days per anesthesiologist. Medications to discontinue per physician Date to take last ffil___[id number]____ Please no make-up, nail bahrain[place], hairspray, perfume, deodorant, or body powder the day of surgery.? No jewelry (including any body piercings) or valuables the day of surgery, leave them at home.? Please take a shower or bath the night before, or the morning of, surgery with an antibacterial soap.? Wear comfortable, loose fitting clothing.? - Jewelry must be removed prior to entering the operating room.? Rings and piercings that are not removed may be cut off. - The hospital will not accept responsibility for valuables.? - Please leave all valuables, including medications, at home the day of surgery. If you are going home after surgery, a licensed shuttle truck driver must drive you home.? - NO public transportation without another adult if you receive anesthesia. - We recommend that an adult stay with you for 24 hours following discharge. - We also recommend that you do not drive, make important decision, drink alcoholic beverages, or take any drugs that were not prescribed by your health care provider for at least 24 hours after your discharge time. Follow any additional instructions given to you from your surgeon. Telephone instructions given to __Wendy__and asked if any additional questions and then verbalized understanding. Patient advised to call surgeon office or pre surgery nurse liaison [phone] if any additional questions.
[2024-10-18] VITALS (8 sets, daily range): BP systolic 113–126; BP diastolic 59–83; PULSE 79–95; RESP 14–20; TEMP 36.2–36.7; O2SAT 98–100
[2024-10-18 08:42] LABS: Glucose Point of Care 120 mg/dl (65-105)
[2024-10-18] MEDS: LACTATED RINGERS 1,000 ML 30 ML IV CONT (08:50)
[2024-10-18] MEDS: ACETAMINOPHEN 500 MG TABLET 1000 MG PO (08:50)
[2024-10-18] MEDS: KETOROLAC 15 MG/ML VIAL (*BKC) IV PUSH (08:50)
[2024-10-18 10:03] LABS: BEDSIDEPREGUCG Negative (Negative)
--- NOTE | 2024-10-18 10:20 | WPDHPUPDATE1 ---
History and Physical Update Update Date/Time: 10/18/24 10:20 History and Physical has been reviewed, including an updated exam of the patient. There are NO changes in the patient's condition. Risks, benefits, and alternatives have been discussed and questions answered. Patient agrees to proceed with procedure.
--- NOTE | 2024-10-18 10:29 | WPDANESEPPF ---
Anes - Initial Pre Proc Eval Procedure: Operation Date: 10/18/24 10:30 Proposed Procedures p Left Elbow Lateral Epicondyle Debridement - Warner Mcnair MD Date/Time: 10/18/24 10:29 Surgeon: Warner Mcnair MD Pre Op Diagnosis: Left lateral epicondylitis Patient Data Age: 49 Gender: F Height: 1.71 m Weight: 62.8 kg Last Vital Signs Temp 36.7 C 10/18/24 08:50 Pulse 79 10/18/24 08:50 Resp 14 10/18/24 08:50 BP 126/83 10/18/24 08:50 Pulse Ox 100 10/18/24 08:50 O2 Del Method Room Air 10/18/24 08:50 Allergies Allergy/AdvReac Type Severity Reaction Status Date / Time azithromycin Allergy Unknown Rash Verified 10/18/24 09:17 Penicillins Allergy Unknown Rash Verified 10/18/24 09:17 dulaglutide (From [facility]) AdvReac Severe Vomiting Verified 10/18/24 09:17 Fwiavhv-WYL-LaS Reductase AdvReac Mild muscle Verified 10/18/24 09:17 Inhibitor cramps Home Medications ?Medication ?Instructions ?Recorded ?Confirmed ?Type lisinopril 10 mg tablet 10 mg PO DAILY 10/14/21 10/18/24 History metformin 500 mg tablet 1,000 mg PO DAILY 10/14/21 10/18/24 History empagliflozin 10 mg tablet 10 mg PO DAILY 10/11/24 10/18/24 History (Jardiance) mv-min-vit C-ascorb 1 tablet PO DAILY 10/11/24 10/18/24 History Ik-Tcu-Dep-herb #124 333 mg-1.7 mg chewable tablet (Airborne (ascorbate sodium)) hydrocodone 5 mg-acetaminophen 325 1 - 2 tablet PO Q4-6H PRN pain #30 10/17/24 Rx mg tablet tabs Laboratory Tests 10/18/24 10/18/24 08:30 08:37 POC Capillary Glucose 120 H mg/dl (65-105) POC Urine HCG, Qual Negative (Negative) Patient hx anesthesia problems: none Family hx anesthesia problems: none Results Review: All pre-operative results and documents have been reviewed as part of the pre-operative evaluation. [facility] Past Medical History Medical History Hypertension Heart murmur GERD with esophagitis Low back pain Menorrhagia Amenorrhea Anxiety disorder Anemia Diabetes Surgical History Surgical History History of endometrial ablation History of bladder surgery History of History of tubal ligation History of knee surgery Hx of foot surgery Family History Family History Mother Diabetes mellitus Hypertension Social History Social History Smoking packs per day: 0.5 Smoking cigarettes per day: 10.0 Years smoked: 25 Smoking pack-years: 12.50 Smoking status: Current every day smoker Tobacco type: cigarettes Alcohol intake: current Drinks per week: 3 Substance use: current Substance use type: marijuana Other substance usage details: A couple times a day. Do You Feel Safe in your Home?: Yes Lack of Transportation: No Lack of Food: Never True Current Housing: I Have Housing Concerned About Future Housing: No Difficulty Paying Gas/Electric Bills: No Difficulty Paying for Meds: No Currently Unemployed: No Education: High School Diploma/GED Difficulty w/ Childcare or Family Care: No Living arrangements: with family Spiritual care concerns: No Anes - Eval Final PreProcedure Day of Procedure 10/18/24 10:29 Patient weight: normal Heart: regular rate and rhythm Lungs: clear to auscultation Airway: Mallampati scale class II and special considerations poor dentition Neurological: alert and oriented Last oral intake: >/= 8 hours ASA classification: III Emergent: no Anesthetic plan: proceed Anesthesia type and monitoring: general LMA and standard monitoring Results Review: All pre-operative results and documents have been reviewed as part of the pre-operative evaluation. Informed Consent: The patient's anesthetic plan and its attendant risks and benefits were discussed with the patient/family/POA. Questions were solicited and answers provided to the satisfaction of the patient/family/POA.
[2024-10-18] MEDS: ceFAZolin 2 GM/D5W 50 ML 2 GM/50 ML BAG IVPB (10:47)
[2024-10-18] MEDS: BUPIVACAINE/EPINEPHRINE 0.5% 30 ML VIAL 20 ML INFILTRATE (11:18)
[2024-10-18 12:08] LABS: Glucose Point of Care 157 mg/dl (65-105)
[2024-10-18] MEDS: oxyCODONE HCL (*CRX) 5 MG TAB IR PO (13:12)
--- NOTE | 2024-10-18 13:42 | W.PM.PROC2 ---
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 Fairly extensive and similar to the contralateral elbow. Description of Procedure The patient was brought to the operating room. Preoperative antibiotics were given. A general anesthetic was administered. The arm was prepped and draped in the usual sterile fashion with a well-padded tourniquet on the arm. The limb was exsanguinated and the tourniquet inflated to 250 mililiters of mercury. A longitudinal incision was created over the pathological site at the lateral epicondyle. Dissection was brought down to the interval between the common extensor tendons and the extensor carpi radialis longus. The muscle was elevated, exposing the extensor carpi radialis brevis. Degenerative pathologic tendon was identified and excised sharply. The lateral epicondyle was abraded with a rongeur. The scratch test was to confirm complete excision of pathologic tissue. The wound was carefully irrigated. The tourniquet was released. The extensor tendon origin was repaired with [id number] sutures #1 Vicryl . The skin was closed with interrupted 3-0 Monocryl suture followed by running 4-0 Monocryl suture and Steri-Strips. Sterile dressing was applied with the wrist splint. The patient was extubated and brought to the recovery room in stable condition. Physician assistant store manager trainee, Laurie Wallace PA-C, required for surgery; including patient positioning, draping, tissue retraction, wound closure, and dressing placement. Estimated Blood Loss 5 Drains No Packing No Pathology None sent Complications No immediate complications Condition Stable Disposition PACU [facility] Billing Surgery - Charge Forward: Surgery Billing
== END 2024-10-18 13:40 | disposition home or self-care (01) ==
PROVIDERS: PCP Nurse Practitioner Family; Visit Provider Orthopaedic Surgery
PROC: (CPT 24110; principal; 2024-10-18 10:30)
DX: M77.12 Lateral epicondylitis, left elbow (principal); I10 Essential (primary) hypertension; K21.9 Gastro-esophageal reflux disease without esophagitis; E11.9 Type 2 diabetes mellitus without complications; D64.9 Anemia, unspecified; F41.9 Anxiety disorder, unspecified; R01.1 Cardiac murmur, unspecified; F17.210 Nicotine dependence, cigarettes, uncomplicated; F12.90 Cannabis use, unspecified, uncomplicated; Z79.84 Long term (current) use of oral hypoglycemic drugs; Z79.891 Long term (current) use of opiate analgesic; Z98.890 Other specified postprocedural states; Z98.891 History of uterine scar from previous surgery; Z98.51 Tubal ligation status
CPT/HCPCS: 64718; 82948; A4565; A9270; J0690; J1100; J1885; J2003; J2250; J2371; J2405; J2704; J3010; J7120